=== PATIENT | female | born 1965 | race Caucasian/White ===

== ENCOUNTER → 2017-07-18 08:34 | Outpatient (CLI) | payer BC, SELFPAY ==
--- NOTE | 2017-07-18 08:38 | CT_ITS ---
STUDY: CT MAXILLOFACIAL SINUSES REASON FOR EXAM: Female, 51 years old. History of sinusitis. RADIATION DOSAGE (If Supplied By Facility): CTDIvol = ( 33.06 ) mGy, DLP = ( 784.26 ) mGycm TECHNIQUE: The patient was scanned in a multi detector CT scanner. High resolution axial imaging was performed without the administration of intravenous contrast material. Sagittal and coronal images were reconstructed. Individualized dose optimization techniques were used for this CT. COMPARISON: None. FINDINGS: FRONTAL SINUSES: Mild mucosal thickening of the left frontal sinus ETHMOIDAL SINUSES: Mild mucosal thickening of the ethmoid sinuses bilaterally. MAXILLARY SINUSES: Moderate mucosal thickening of the maxillary sinuses bilaterally. SPHENOIDAL SINUSES: Mild to moderate mucosal thickening of the sphenoid sinuses bilaterally. The ostiomeatal complex is bilaterally appear to be occluded. Normal bilateral middle turbinates. Normal bilateral inferior turbinates. Normal midline nasal septum. There is patency of the bilateral nasal airways. The visualized osseous structures are normal. The visualized bilateral orbital contents are normal. CT/Sinus/Facial Bone IMPRESSION: Pansinusitis as described above likely chronic. No air-fluid levels are seen. No demonstrated osseous changes. Electronically Signed: Trent Glass MD at 11:54 EDT Tel , Service support ,
== END ==
PROVIDERS: Family Provider Family Medicine; PCP Family Medicine; Visit Provider Otolaryngology
DX: J32.9 Chronic sinusitis, unspecified (principal); J33.0 Polyp of nasal cavity
CPT/HCPCS: 70486

== ENCOUNTER → 2017-10-07 11:24 | Outpatient (CLI) | payer BC, SELFPAY ==
[2017-10-13 11:53] LABS: HPV Reflexed? NOT INDICATED
== END ==
PROVIDERS: Visit Provider Obstetrics & Gynecology
DX: Z12.4 Encounter for screening for malignant neoplasm of cervix (principal)
CPT/HCPCS: 88175; G0145

== ENCOUNTER → 2018-01-27 09:57 | Outpatient (CLI) | payer BC, SELFPAY ==
[2018-01-27 12:40] LABS: Hematocrit 40.7 % (37-47); Hemoglobin 13.7 g/dl (12.0-15.0)
[2018-01-27 12:54] LABS: ALB/GLOB Ratio 1.1 RATIO (0.9-2.4); AST(SGOT) 18 U/L (15-37); Alanine Aminotransfer ALT/SGPT 29 U/L (13-56); Albumin, Serum 3.8 g/dL (3.2-5.0); Alkaline Phosphatase 70 U/L (45-117); Anion Gap 8 (5-15); BUN 14 mg/dL (7-18); BUN/Creat Ratio 18.7 RATIO (10-20); Calcium,Total 8.9 mg/dL (8.5-10.1); Chloride 107 mmol/L (98-107); Cholesterol 196 mg/dL (200); Creatinine, Serum 0.75 mg/dL (0.55-1.02); EST Glomerular Filtration Rate 86 mL/min (>60); Est Glom Filt Rate - Afr Amer 105 mL/min (>60); Globulin 3.4 g/dL (2.2-4.2); Glucose 98 mg/dL (74-106); High Density Lipoprotein 84 mg/dL; Potassium 4.3 mmol/L (3.5-5.1); Protein, Total 7.2 g/dL (6.4-8.2); Sodium Level 143 mmol/L (136-145); Thyroid Stim Hormone (TSH) 1.19 uIU/mL (0.358-3.74); Triglycerides 80 mg/dL; Very Low Density Lipoprotein 16 mg/dL (5-40)
== END ==
PROVIDERS: Family Provider Family Medicine; PCP Family Medicine; Visit Provider Family Medicine
DX: Z00.00 Encounter for general adult medical examination without abnormal findings (principal); E78.00 Pure hypercholesterolemia, unspecified; G47.30 Sleep apnea, unspecified
CPT/HCPCS: 36415; 80053; 80061; 84443; 85014; 85018

== ENCOUNTER → 2018-07-14 12:12 | Outpatient (CLI) | payer BC, SELFPAY ==
[2018-07-14 14:20] LABS: Absolute Lymphocyte Count 3.26 X10^3/ul (0.83-4.51); Absolute Neutrophil Count 3.4 X10^3/uL (2.0-7.7); Basophil# 0.01 X10^3/uL; Basophil% 0.1 % (0-1); Eosinophil# 0.08 X10^3/uL; Eosinophils% 1.1 % (0-5); Hematocrit 43.1 % (37-47); Hemoglobin 14.2 g/dl (12.0-15.0); Lymphocyte # 3.26 X10^3/ul (4.0); Lymphocyte % 44.3 % (19-41); Mean Corp Hgb Conc 32.9 g/gl (32-36); Mean Corpuscular Hgb 29.1 pg (27.0-32.0); Mean Corpuscular Volume 88.3 fL (81-99); Mean Platelet Vol. 9.5 fl (6.2-12.0); Monocyte# 0.56 X10^3/uL; Monocyte% 7.6 % (0-10); Neutrophil # 3.44 X10^3/uL (2.7-7.7); Neutrophil % 46.8 % (47-70); Platelet Count 274 K/mm3 (150-450); RBC Distribution Width CV 13.5 % (11.6-14.6); RBC Distribution Width SD 43.4 fl (35.1-43.9); Red Blood Count 4.88 M/mm3 (4.2-5.4); White Blood Count 7.4 K/mm3 (4.4-11.0)
[2018-07-14 14:21] LABS: POSITIVE COUNT NO; POSITIVE DIFFERENTIAL NO; POSITIVE MORPHOLOGY NO
[2018-07-14 14:44] LABS: ALB/GLOB Ratio 1.4 RATIO (0.9-2.4); AST(SGOT) 19 U/L (15-37); Alanine Aminotransfer ALT/SGPT 48 U/L (13-56); Albumin, Serum 3.8 g/dL (3.2-5.0); Alkaline Phosphatase 82 U/L (45-117); Anion Gap 7 (5-15); BUN 14 mg/dL (7-18); BUN/Creat Ratio 20.1 RATIO (10-20); Calcium,Total 8.4 mg/dL (8.5-10.1); Chloride 104 mmol/L (98-107); EST Glomerular Filtration Rate 94 mL/min (>60); Est Glom Filt Rate - Afr Amer 113 mL/min (>60); Globulin 2.8 g/dL (2.2-4.2); Glucose 88 mg/dL (74-106); Magnesium 2.2 mg/dL (1.6-2.6); Potassium 3.7 mmol/L (3.5-5.1); Protein, Total 6.6 g/dL (6.4-8.2); Sodium Level 141 mmol/L (136-145)
== END ==
PROVIDERS: Family Provider Family Medicine; PCP Family Medicine; Referring Provider Family Medicine; Visit Provider Family Medicine
DX: J18.1 Lobar pneumonia, unspecified organism (principal)
CPT/HCPCS: 36415; 80053; 83735; 85025

== ENCOUNTER → 2019-01-20 17:50 | Outpatient (CLI) | payer BC, SELFPAY ==
[2019-01-26 12:59] LABS: HPV APTIMA, High Risk Negative (Negative)
== END ==
PROVIDERS: Family Provider Family Medicine; PCP Family Medicine; Referring Provider Obstetrics & Gynecology; Visit Provider Obstetrics & Gynecology
DX: Z12.4 Encounter for screening for malignant neoplasm of cervix (principal)
CPT/HCPCS: 87624; 88175; G0145

== ENCOUNTER 2019-05-20 05:31 | Day surgery (SDC) | payer BC, SELFPAY ==
[2019-05-20] VITALS (9 sets, daily range): BP systolic 118–140; BP diastolic 63–106; PULSE 67–77; RESP 16–18; TEMP 36.3–36.6; O2SAT 95–100; BMI 36.3
--- NOTE | 2019-05-20 | COLBX_PTH ---
PATIENT: MONI ROBERTS LOC: EN U#:[id number] AGE/SX: 53/F ROOM: RE05/20/[address]: Dr. Gustavo Page MD : 1965 BED: DIS: 05/20/2019 SPEC #: [id number] RECD: 05/20/19 12:18 STATUS: CARLINE KEILA #: [id number] SHAMEKA: 05/20/19 00:[address]: Gustavo Page DEPT: SURGICAL PATHOLOGY RECD BY: Kt Pascal ENTERED: 05/20/19 12:18 SP TYPE: COLON BX OTHR DR: Dr. Eren Mena MD Tissues: Sigmoid colon biopsy Procedures: Surgery Specimen Level IV HEADER OPERATION: Colonoscopy - open access (MOD) PRE-OP DIAGNOSIS: Screening TISSUE SUBMITTED: Distal sigmoid polyp MICROSCOPIC DIAGNOSIS Distal sigmoid colon polyp, biopsy: Hyperplastic polyp. AM:jesusita 05/23/19 MICROSCOPIC DESCRIPTION Slides are reviewed. GROSS DESCRIPTION Received in fixative is one container labeled with the patient's name and designated distal sigmoid polyp. The specimen consists of one irregular fragment of light schultz soft tissue that measures 0.3 x 0.3 x 0.1 cm. The specimen is totally submitted in one cassette. / SJ:jesusita 05/20/19 TC:5 CPT: 16198
[2019-05-20] MEDS: Lactated Ringers 1,000 ML 100 ML IV (06:05)
--- NOTE | 2019-05-20 06:16 | PCM.HP.STD ---
Problem List (1) Screening for intestinal cancer Status: Acute History of Present Illness Date of Admission: 05/20/19 The patient is a 53 year old F who presents for screening colonoscopy today. She has never had a previous exam. 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 She was followed by gastroenterology at the [facility]. She states however that her most recent upper endoscopy that there was no evidence of Santizo's. She denies abdominal pain. No bright red blood per rectum or melena. She states that she was scheduled to have a previous colonoscopy but that an upper endoscopy was done at that setting and she had laryngeal spasm. The colonoscopy component of that procedure was canceled. She states that she has had multiple other previous upper endoscopies without any consequence. Past Medical History Allergies No Known Allergies Allergy (Verified 05/12/19 14:27) Home Medications: Ambulatory Orders Medication Instructions Recorded Cetirizine HCl [Zyrtec] 10 mg PO DAILY 05/12/19 Citalopram [Celexa] 20 mg PO DAILY 05/12/19 Multivitamin [Daily Value] 1 ea PO DAILY 05/12/19 RX: Omeprazole 40 mg PO DAILY 05/12/19 Simvastatin [Zocor] 40 mg PO QHS 05/12/19 Smoking Status: Former smoker Tobacco Use: Non-smoker Review of Systems Constitutional: Denies: Anorexia HEENT: Denies: Difficulty Swallowing Cardiovascular: Denies: Chest Pain Respiratory: Denies: Cough Gastrointestinal: Denies: Abdominal Pain, Melena Endocrine: Denies: Change in Body Habitus VTE Information - Inpt Only VTE Present on Admission: No Patient Problems: Active and Suspected Problems Screening for intestinal cancer (Acute) - Physical Exam Vitals/I&O's: Vital Signs Temp Pulse Resp BP Pulse Ox 97.5 F L 67 18 138/106 H 99 05/20/19 05:53 05/20/19 05:53 05/20/19 05:53 05/20/19 05:53 05/20/19 05:53 Oxygen Delivery Method Room Air Weight: 205 lb 7.533 oz Body Mass Index (BMI) 36.3 General: Alert, Oriented x3, Cooperative, No apparent distress HEENT: Atraumatic Oral: Moist Mucosa Neck: Supple Lungs: Clear to auscultation Cardiovascular: Regular rate, Regular Rhythm Abdomen: Bowel Sounds Present, Non Tender Neurological: - - Normal cognition Psych/Mental Status: Normal Affect Current Medications Lactated Ringer's () 1,000 mls @ 100 mls/hr IV .Q10H MARCELA Last Admin: 05/20/19 06:05 Dose: 100 mls/hr Documented by: Assessment/Plan All Active Problems Screening for intestinal cancer (Acute) I recommended the patient a screening colonoscopy with possible biopsy or polypectomy is indicated. She is aware of the technique, benefit, risks, alternatives. She has had an opportunity to ask and have questions answered. She presents via open access today. We will proceed as noted. Gustavo Page M.D., F.A.C.S.
--- NOTE | 2019-05-20 07:02 | OP.CCLET_ITS ---
05/20/2019 Eren Mena [address] [place] [address] Re : Colonoscopy procedure for Margaret David Dear Dr. Mena This procedure was performed on Monday, May 20, 2019. My impressions and recommendations are as follows: Impressions : - One 6 mm polyp in the distal sigmoid colon, removed with a hot snare. Resected and retrieved. Clip was placed. - Diverticulosis in the sigmoid colon. - The examination was otherwise normal. Recommendations : - Discharge patient to home. - Resume previous diet. - Continue present medications. - Repeat colonoscopy in 5 years for surveillance. - Telephone my office for pathology results in 1 week. My findings are described in the full procedure note, which is enclosed. If I can be of further assistance, please feel free to contact me at Doctor phone number(s): Work: . Sincerely, Gustavo Page MD 05/20/2019 7:02:01 AM This report has been signed electronically.
--- NOTE | 2019-05-20 07:02 | OP.COLON_ITS ---
Patient Name: Margaret Hernandez Procedure Date: 05/20/2019 5:54 AM Date of : 1965 Age: 53 Procedure: Colonoscopy Indications: Screening for colorectal malignant neoplasm Providers: Gustavo Page MD Referring MD: Eren Mena Medicines: Midazolam 4 mg IV, Meperidine 100 mg IV, Diphenhydramine 12.5 mg IV Patient Profile: Last Colonoscopy: none. The patient's first colonoscopy is today. Complications: No immediate complications. Procedure: Pre-Anesthesia Assessment: - Prior to the procedure, a History and Physical was performed, and patient medications and allergies were reviewed. The patient's tolerance of previous anesthesia was also reviewed. The risks and benefits of the procedure and the sedation options and risks were discussed with the patient. All questions were answered, and informed consent was obtained. Prior Anticoagulants: The patient has taken no previous anticoagulant or antiplatelet agents. ASA Grade Assessment: II - A patient with mild systemic disease. After reviewing the risks and benefits, the patient was deemed in satisfactory condition to undergo the procedure. After I obtained informed consent, the scope was passed under direct vision. Throughout the procedure, the patient's blood pressure, pulse, and oxygen saturations were monitored continuously. The colonoscope was introduced through the anus and advanced to the cecum, identified by appendiceal orifice and ileocecal valve. The colonoscopy was performed with moderate difficulty due to a tortuous colon. Successful completion of the procedure was aided by using manual pressure. The patient tolerated the procedure well. The quality of the bowel preparation was good. The ileocecal valve and the appendiceal orifice were photographed. Moderate Sedation: Moderate (conscious) sedation was personally administered by the endoscopist. The following parameters were monitored: oxygen saturation, heart rate, blood pressure, and response to care. Total physician intraservice time was 15 minutes. Scope In: 6:35:07 AM Scope Withdrawal Time 0 hours 8 minutes 27 seconds Scope Out: 6:53:07 AM Total Procedure Duration Time 0 hours 18 minutes 0 seconds Findings: The perianal and digital rectal examinations were normal. A 6 mm polyp was found in the distal sigmoid colon. The polyp was sessile. The polyp was removed with a hot snare. Resection and retrieval were complete. To prevent bleeding post-intervention, one hemostatic clip was successfully placed. There was no bleeding at the end of the procedure. Scattered diverticula were found in the sigmoid colon. The exam was otherwise without abnormality. Impression: - One 6 mm polyp in the distal sigmoid colon, removed with a hot snare. Resected and retrieved. Clip was placed. - Diverticulosis in the sigmoid colon. - The examination was otherwise normal. Recommendation: - Discharge patient to home. - Resume previous diet. - Continue present medications. - Repeat colonoscopy in 5 years for surveillance. - Telephone my office for pathology results in 1 week. Procedure Code(s): --- Professional --- 38142, Colonoscopy, flexible; with removal of tumor(s), polyp(s), or other lesion(s) by snare technique 94549, 59, Moderate sedation services provided by the same physician or other qualified health reservoir caretaker performing the diagnostic or therapeutic service that the sedation supports, requiring the presence of an independent trained observer to assist in the monitoring of the patient's level of consciousness and physiological status; initial 15 minutes of intraservice time, patient age 5 years or older Diagnosis Code(s): --- Professional --- Z12.11, Encounter for screening for malignant neoplasm of colon D12.5, Benign neoplasm of sigmoid colon K57.30, Diverticulosis of large intestine without perforation or abscess without bleeding CPT copyright 2017 [employer]. All rights reserved. The codes documented in this report are preliminary and upon dumpling machine operator review may be revised to meet current compliance requirements. Gustavo Page MD 05/20/2019 7:02:01 AM This report has been signed electronically. Number of Addenda: 0 Note Initiated On: 05/20/2019 5:54 AM
== END 2019-05-20 07:35 | disposition home or self-care (01) ==
LOC: EN 05:32 → AC 05:33
PROVIDERS: Family Provider Family Medicine; PCP Family Medicine; Referring Provider Family Medicine; Visit Provider Surgery
PROC: 0DJD8ZZ Inspection of Lower Intestinal Tract, Via Natural or Artificial Opening Endoscopic (ICD-10-PCS; CPT 45378; principal; 2019-05-20 06:25)
DX: Z12.11 Encounter for screening for malignant neoplasm of colon (principal); D12.5 Benign neoplasm of sigmoid colon; K57.30 Diverticulosis of large intestine without perforation or abscess without bleeding; J38.5 Laryngeal spasm; Z79.899 Other long term (current) drug therapy; Z87.891 Personal history of nicotine dependence
CPT/HCPCS: 45385; 88305; 99152; 99153; J7120

== ENCOUNTER → 2020-01-06 15:54 | Outpatient (CLI) | payer BC, SELFPAY ==
[2019-05-20 05:53] VITALS: BMI 36.3
[2020-01-06 17:51] LABS: Absolute Lymphocyte Count 2.88 X10^3/uL (0.83-4.51); Absolute Neutrophil Count 5.2 X10^3/uL (2.0-7.7); Basophil# 0.06 X10^3/uL; Basophil% 0.7 % (0-1); Eosinophil# 0.39 X10^3/uL; Eosinophils% 4.3 % (0-5); Hematocrit 41.3 % (37-47); Hemoglobin 13.7 g/dL (12.0-15.0); Lymphocyte # 2.88 X10^3/ul (4.0); Lymphocyte % 31.5 % (19-41); Mean Corp Hgb Conc 33.2 g/dL (32-36); Mean Corpuscular Hgb 30.2 pg (27.0-32.0); Mean Corpuscular Volume 91.2 fL (81-99); Mean Platelet Vol. 10.1 fl (6.2-12.0); Monocyte# 0.59 X10^3/uL; Monocyte% 6.4 % (0-10); NRBC Flagged by Analyzer 0 % (0-5); Neutrophil # 5.21 X10^3/uL (2.7-7.7); Neutrophil % 56.9 % (47-70); Platelet Count 327 K/mm3 (150-450); RBC Distribution Width CV 13.2 % (11.6-14.6); RBC Distribution Width SD 43.8 fl (35.1-43.9); Red Blood Count 4.53 M/mm3 (4.2-5.4); White Blood Count 9.2 K/mm3 (4.4-11.0)
[2020-01-06 18:03] LABS: AST(SGOT) 15 U/L (15-37); Alanine Aminotransfer ALT/SGPT 27 U/L (13-56); Albumin, Serum 3.7 g/dL (3.2-5.0); Alkaline Phosphatase 76 U/L (45-117); Anion Gap 5 (5-15); BUN 8 mg/dL (7-18); BUN/Creat Ratio 9.4 RATIO (10-20); Calcium,Total 9.1 mg/dL (8.5-10.1); Chloride 109 mmol/L (98-107); Creatinine, Serum 0.85 mg/dL (0.55-1.02); EST Glomerular Filtration Rate 74 mL/min (>60); Est Glom Filt Rate - Afr Amer 90 mL/min (>60); Globulin 3.6 g/dL (2.2-4.2); Glucose 101 mg/dL (74-106); Lipase 185 U/L (73-393); Potassium 3.8 mmol/L (3.5-5.1); Protein, Total 7.3 g/dL (6.4-8.2); Sodium Level 143 mmol/L (136-145)
[2020-01-09 15:24] LABS: CRP, High Sensitivity Cardiac 3.51 mg/L
== END ==
PROVIDERS: PCP Family Medicine; Referring Provider Family Medicine; Visit Provider Family Medicine
DX: R10.11 Right upper quadrant pain (principal)
CPT/HCPCS: 36415; 80053; 83690; 85025; 86141

== ENCOUNTER → 2020-01-07 11:30 | Outpatient (CLI) | payer BC, SELFPAY ==
[2019-05-20 05:53] VITALS: BMI 36.3
--- NOTE | 2020-01-07 11:33 | US_ITS ---
STUDY: ABDOMINAL ULTRASOUND REASON FOR EXAM: Female, 54 years old. RUQ PAIN TECHNIQUE: Transabdominal ultrasound was performed with real-time and static casas scale imaging. TECHNICAL QUALITY: Adequate. COMPARISON: None. FINDINGS: Liver: The liver measures 17.2 cm. There is normal echogenicity of the liver. The bile ducts are within normal limits. There is hepatic color flow. The direction of portal flow is hepatopetal. There is no demonstrated mass lesion. Portal vein measurement: Gallbladder: Normal distended gallbladder. The gallbladder wall measures 1 mm. There is a negative sonographic Aleman''s sign. There is no pericholecystic fluid. There are no gallstones. Common Bile Duct (C.B.D.): The common bile duct measures 4 mm. Pancreas: Pancreatic head and body are visualized however the tail is incompletely seen. There is normal echogenicity of the pancreas. There is no demonstrated pancreatic mass or cyst. Spleen: Normal size of the spleen. The spleen measures 10.8 cm. Right Kidney: Normal size of the right kidney. The right kidney measures 11.7 x 4.5 x 4.2 cm. Normal renal cortex. The right cortex measures 1.4 cm. There is a hypoechoic region within the right renal cortex measuring 9 x 7 x 7 mm. There is no right hydronephrosis. Left Kidney: Normal size of the left kidney. The left kidney measures 11.5 x 5.3 x 4.4 cm. Normal renal cortex. The left cortex measures 1.5 cm. There is no demonstrated renal mass or cyst. There is no left hydronephrosis. Aorta: Proximal aorta measures 2.0 cm, mid 1.7 cm and distal 1.5 cm. I.V.C.: The IVC is patent. There is no ascites. US/Abdomen Complete IMPRESSION: No evidence of acute abdominal process by ultrasound. No evidence of cholecystitis. Electronically Signed: Bill Gonzalez DO at 12:24 EDT , Service support ,
== END ==
PROVIDERS: PCP Family Medicine; Referring Provider Family Medicine; Visit Provider Family Medicine
DX: R10.11 Right upper quadrant pain (principal)
CPT/HCPCS: 76700

== ENCOUNTER → 2020-11-05 09:20 | Outpatient (CLI) | payer BC, SELFPAY ==
[2019-05-20 05:53] VITALS: BMI 36.3
--- NOTE | 2020-11-05 09:23 | BI_ITS ---
MAMMOGRAPHY - BILATERAL DIAGNOSTIC REASON FOR EXAM: Female, 54 years old. Six-month history of right lateral breast pain. PERTINENT HISTORY: Non-contributory. TECHNIQUE: Digital bilateral breast carla (3D mammographic acquisition) in the CC and MLO projections. 2-D mediolateral oblique (MLO) and craniocaudad (CC) views of both breasts were obtained. CAD: Full Field Digital Mammography with Computer Added Detection was performed. COMPARISON: Comparison is made with prior outside examination dated 12/15/2018. FINDINGS: Breast Composition: There are scattered areas of fibroglandular density. There are no dominant masses or suspicious calcifications. There is a 9 mm well-defined nodule in the anterior slightly upper lateral aspect of the left breast. Correlation with ultrasound is recommended. Stable small benign-appearing bilateral axillary lymph nodes. No other significant abnormalities are identified. BI/DIAG MAMM W/CAD, BILAT IMPRESSION: Slight increase in size of the previously seen nodule in the upper-outer quadrant of the left breast as described. Correlation with ultrasound is recommended. With the patient''s history of right lateral breast pain, correlation with targeted ultrasound of the right breast is recommended as well. ASSESSMENT CATEGORY: BIRADS Category 0: Incomplete. Need additional imaging evaluation. A letter regarding these results will be sent to the patient by the facility within 30 days. Approximately 10% of breast cancers are not detected by mammography. A normal mammogram should not delay biopsy of a clinically suspicious abnormality. Electronically Signed: Jaime Roach MD at 10:32 EDT , Service support ,
--- NOTE | 2020-11-05 10:02 | US_ITS ---
STUDY: ULTRASOUND BREAST - LEFT REASON FOR EXAM: Female, 54 years old. Left breast nodule. TECHNIQUE: Axial and longitudinal images of the LEFT breast were performed with a high resolution ultrasound transducer. # OF IMAGES: 81 COMPARISON: Comparison is made with prior mammogram done earlier today. FINDINGS: LEFT Breast: There is an 8 mm x 7 mm x 7 mm cyst with low-level echoes within. This is just deep to the skin surface. This may represent a possible sebaceous cyst. Clinical correlation recommended. IMPRESSION: The mammographic abnormality corresponds to an 8 mm x 7 mm x 7 mm cystic density with the low-level echoes within it at the 3 o''clock position breast at 3 cm from the nipple. This is superficial. A sebaceous cyst should be ruled out. ASSESSMENT CATEGORY: BIRADS Category 2: Benign. A letter regarding these results will be sent to the patient by the facility within 30 days. Electronically Signed: Jaime Roach MD at 11:10 EDT , Service support , STUDY: ULTRASOUND BREAST - RIGHT REASON FOR EXAM: Female, 54 years old. Pain in the right breast. TECHNIQUE: Axial and longitudinal images of the RIGHT breast were performed with a high resolution ultrasound transducer. # OF IMAGES: 81 COMPARISON: Comparison is made with prior mammogram done earlier today. FINDINGS: RIGHT Breast: The upper outer quadrant of the right breast was examined by ultrasound. There is a 1.2 cm x 1.4 cm x 0.7 cm cyst. Low-level echoes are seen along its dependent portion. This is just deep to the skin surface. A sebaceous cyst should be ruled out. US/Breast Limited Unilateral IMPRESSION: 1.2 cm x 1.4 cm x 0.7 cm cyst with low-level echoes within it just deep to the skin surface at the 10 o''clock position of the breast is 6 cm from nipple. This may represent a sebaceous cyst. Clinical correlation is recommended. ASSESSMENT CATEGORY: BIRADS Category 2: Benign. A letter regarding these results will be sent to the patient by the facility within 30 days. Electronically Signed: Jaime Roach MD at 11:11 EDT , Service support ,
== END ==
PROVIDERS: PCP Family Medicine; Referring Provider Obstetrics & Gynecology; Visit Provider Obstetrics & Gynecology
DX: N63.31 Unspecified lump in axillary tail of the right breast (principal); N64.4 Mastodynia
CPT/HCPCS: 76642; 77062; 77066; G0279

== ENCOUNTER 2021-04-23 10:23 | Outpatient (CLI) | payer MEDICAID, SELFPAY ==
[2021-04-23 12:37] LABS: Absolute Lymphocyte Count 2.06 X10^3/uL (0.83-4.51); Basophil# 0.03 X10^3/uL; Basophil% 0.5 % (0-1); Eosinophil# 0.42 X10^3/uL; Eosinophils% 6.9 % (0-5); Hematocrit 40.7 % (37-47); Hemoglobin 13.2 g/dL (12.0-15.0); Lymphocyte # 2.06 X10^3/ul (0.83-4.51); Lymphocyte % 33.8 % (19-41); Mean Corp Hgb Conc 32.4 g/dL (32-36); Mean Corpuscular Hgb 28.6 pg (27.0-32.0); Mean Corpuscular Volume 88.3 fL (81-99); Mean Platelet Vol. 9.7 fl (6.2-12.0); Monocyte# 0.59 X10^3/uL; Monocyte% 9.7 % (0-10); NRBC Flagged by Analyzer 0 % (0-5); Neutrophil # 2.98 X10^3/uL (2.7-7.7); Neutrophil % 48.8 % (47-70); Platelet Count 291 K/mm3 (150-450); RBC Distribution Width CV 13.3 % (11.6-14.6); Red Blood Count 4.61 M/mm3 (4.2-5.4); White Blood Count 6.1 K/mm3 (4.4-11.0)
[2021-04-23 12:47] LABS: Vitamin D,25 Hydroxy 18.1 ng/mL
[2021-04-23 12:56] LABS: AST(SGOT) 16 U/L (15-37); Alanine Aminotransfer ALT/SGPT 34 U/L (13-56); Albumin, Serum 3.7 g/dL (3.2-5.0); Alkaline Phosphatase 76 U/L (45-117); Anion Gap 11 (5-15); BUN 17 mg/dL (7-18); BUN/Creat Ratio 21.4 RATIO (10-20); Calcium,Total 9.2 mg/dL (8.5-10.1); Chloride 105 mmol/L (98-107); Cholesterol 197 mg/dL (200); Creatinine, Serum 0.79 mg/dL (0.55-1.02); EST Glomerular Filtration Rate 80 mL/min (>60); Est Glom Filt Rate - Afr Amer 97 mL/min (>60); Globulin 3.6 g/dL (2.2-4.2); Glucose 107 mg/dL (74-106); High Density Lipoprotein 85 mg/dL; Potassium 3.6 mmol/L (3.5-5.1); Protein, Total 7.3 g/dL (6.4-8.2); Sodium Level 143 mmol/L (136-145); Thyroid Stim Hormone (TSH) 2.24 uIU/mL (0.358-3.74); Triglycerides 116 mg/dL; Very Low Density Lipoprotein 23 mg/dL (5-40)
== END 2021-04-23 23:59 | disposition short-term general hospital (02) ==
LOC: BIMLAB 10:25
PROVIDERS: PCP Internal Medicine; Referring Provider Internal Medicine; Visit Provider Internal Medicine
DX: E78.5 Hyperlipidemia, unspecified (principal); K21.9 Gastro-esophageal reflux disease without esophagitis; K22.70 Barrett's esophagus without dysplasia; F41.9 Anxiety disorder, unspecified
CPT/HCPCS: 36415; 80053; 80061; 82306; 84443; 85025

== ENCOUNTER → 2022-09-01 | Outpatient (CLI) | payer MEDICAID, SELFPAY ==
--- NOTE | 2022-09-01 09:35 | BI_ITS ---
MAMMOGRAPHY - BILATERAL SCREENING REASON FOR EXAM: Female, 56 years old. Routine annual screening examination. PERTINENT HISTORY: Non-contributory. TECHNIQUE: Digital bilateral breast mari (3D mammographic acquisition) in the CC and MLO projections. 2-D mediolateral oblique (MLO) and craniocaudad (CC) views of both breasts were obtained. CAD: Full Field Digital Mammography with Computer Added Detection was performed. COMPARISON: Comparison is made with prior study November 05, 2020. FINDINGS: Breast Composition: There are scattered areas of fibroglandular density. There is a 1 cm x 1.3 cm well-defined nodule in the anterior upper lateral aspect of the left breast. Ultrasound is recommended. Stable benign-appearing bilateral axillary lymph nodes. No other significant abnormalities are identified. BI/SCRN MAMM (CAD)W/MARI BILAT IMPRESSION: 1 cm x 1.3 cm well-defined nodule in the anterior plantar aspect of the left breast. Correlation with ultrasound is recommended. ASSESSMENT CATEGORY: BIRADS Category 0: Incomplete. Need additional imaging evaluation. A letter regarding these results will be sent to the patient by the facility within 30 days. Approximately 10% of breast cancers are not detected by mammography. A normal mammogram should not delay biopsy of a clinically suspicious abnormality. [id number] Electronically Signed: Jaime Roach MD at 11:25 EDT ,
[2022-09-01 10:47] LABS: Absolute Lymphocyte Count 2.31 X10^3/uL (0.83-4.51); Basophil# 0.06 X10^3/uL; Basophil% 0.9 % (0-1); Eosinophil# 0.47 X10^3/uL; Eosinophils% 7.3 % (0-5); Hemoglobin 13.5 g/dL (12.0-15.0); Lymphocyte # 2.31 X10^3/ul (0.83-4.51); Lymphocyte % 35.8 % (19-41); Mean Corp Hgb Conc 32.9 g/dL (32-36); Mean Corpuscular Hgb 29.5 pg (27.0-32.0); Mean Corpuscular Volume 89.7 fL (81-99); Mean Platelet Vol. 9.6 fl (6.2-12.0); Monocyte# 0.57 X10^3/uL; Monocyte% 8.8 % (0-10); NRBC Flagged by Analyzer 0 % (0-5); Neutrophil # 3.03 X10^3/uL (2.7-7.7); Neutrophil % 46.9 % (47-70); Platelet Count 310 K/mm3 (150-450); RBC Distribution Width CV 13.6 % (11.6-14.6); RBC Distribution Width SD 44.6 fl (35.1-43.9); Red Blood Count 4.57 M/mm3 (4.2-5.4); White Blood Count 6.5 K/mm3 (4.4-11.0)
[2022-09-01 11:10] LABS: ALB/GLOB Ratio 1.2 RATIO (0.9-2.4); AST(SGOT) 24 U/L (15-37); Alanine Aminotransfer ALT/SGPT 36 U/L (13-56); Albumin, Serum 3.9 g/dL (3.2-5.0); Alkaline Phosphatase 74 U/L (45-117); Anion Gap 7 (5-15); BUN 15 mg/dL (7-18); Calcium,Total 9.2 mg/dL (8.5-10.1); Chloride 108 mmol/L (98-107); Cholesterol 209 mg/dL (200); Creatinine, Serum 0.79 mg/dL (0.55-1.02); EST Glomerular Filtration Rate 80 mL/min (>60); Est Glom Filt Rate - Afr Amer 97 mL/min (>60); Globulin 3.3 g/dL (2.2-4.2); Glucose 98 mg/dL (74-106); High Density Lipoprotein 101 mg/dL; Potassium 3.7 mmol/L (3.5-5.1); Protein, Total 7.2 g/dL (6.4-8.2); Sodium Level 144 mmol/L (136-145); Triglycerides 104 mg/dL; Very Low Density Lipoprotein 21 mg/dL (5-40)
[2022-09-01 11:15] LABS: Hemoglobin A1c 5.1 % (3.8-5.6)
[2022-09-01 11:19] LABS: Vitamin D,25 Hydroxy 34.8 ng/mL
== END | disposition home or self-care (01) ==
PROVIDERS: PCP Internal Medicine; Referring Provider Internal Medicine; Visit Provider Internal Medicine
DX: Z12.31 Encounter for screening mammogram for malignant neoplasm of breast (principal); E66.9 Obesity, unspecified; R73.9 Hyperglycemia, unspecified; E78.5 Hyperlipidemia, unspecified; E55.9 Vitamin D deficiency, unspecified
CPT/HCPCS: 36415; 77063; 77067; 80053; 80061; 82306; 83036; 85025

== ENCOUNTER → 2022-09-16 | Outpatient (CLI) | payer MEDICAID, SELFPAY ==
--- NOTE | 2022-09-16 07:51 | US_ITS ---
STUDY: ULTRASOUND BREAST - LEFT REASON FOR EXAM: Female, 56 years old. Abnormal screening mammogram. TECHNIQUE: Axial and longitudinal images of the LEFT breast were performed with a high resolution ultrasound transducer. # OF IMAGES: 59 COMPARISON: Comparison is made with prior mammogram dated September 01, 2022 and prior sonogram of the left breast dated November 05, 2020. FINDINGS: LEFT Breast: The mammographic abnormality corresponds to a 9 mm x 4 mm x 3 mm cyst at the 12:00 position of the breast at 6 cm from nipple. There are 2 adjacent similar appearing cysts at the 2:00 position the breast measuring 6 mm x 3 mm x 4 mm. US/Breast Limited Unilateral IMPRESSION: Small cysts are seen in the upper outer quadrant of the left breast. ASSESSMENT CATEGORY: BIRADS Category 2: Benign. A letter regarding these results will be sent to the patient by the facility within 30 days. Electronically Signed: Jaime Roach MD at 13:18 EDT ,
== END | disposition home or self-care (01) ==
LOC: OPUS 07:50
PROVIDERS: PCP Internal Medicine; Referring Provider Internal Medicine; Visit Provider Internal Medicine
DX: R92.8 Other abnormal and inconclusive findings on diagnostic imaging of breast (principal); N63.21 Unspecified lump in the left breast, upper outer quadrant
CPT/HCPCS: 76642

== ENCOUNTER 2023-03-03 08:58 | Day surgery (SDC) | payer MEDICAID, SELFPAY ==
--- NOTE | 2023-02-24 08:18 | EKG12_ITS ---
Test Reason : PRE OP Blood Pressure : / mmHG Vent. Rate : 062 BPM Atrial Rate : 062 BPM P-R Int : 160 ms QRS Dur : 086 ms QT Int : 428 ms P-R-T Axes : 056 025 061 degrees QTc Int : 434 ms Normal sinus rhythm Normal ECG Confirmed by SARAH RETANA, MAYNOR ([id number]), state editor SADIE DE LA O ([id number]) on 03/02/2023 7:30:52 AM Referred By: Víctor Milian Confirmed By:SANIYA SMITH MD
[2023-02-24 09:00] LABS: Hematocrit 42.5 % (37-47); Mean Corp Hgb Conc 32.9 g/dL (32-36); Mean Corpuscular Hgb 29.9 pg (27.0-32.0); Mean Corpuscular Volume 90.6 fL (81-99); Mean Platelet Vol. 9.6 fl (6.2-12.0); Platelet Count 291 K/mm3 (150-450); RBC Distribution Width CV 13.9 % (11.6-14.6); RBC Distribution Width SD 45.3 fl (35.1-43.9); Red Blood Count 4.69 M/mm3 (4.2-5.4); White Blood Count 5.7 K/mm3 (4.4-11.0)
[2023-02-24 09:34] LABS: Anion Gap 3 (5-15); BUN 11 mg/dL (7-18); BUN/Creat Ratio 13.9 RATIO (10-20); Calcium,Total 9.3 mg/dL (8.5-10.1); Chloride 111 mmol/L (98-107); Creatinine, Serum 0.79 mg/dL (0.55-1.02); EST Glomerular Filtration Rate 80 mL/min (>60); Est Glom Filt Rate - Afr Amer 97 mL/min (>60); Glucose 118 mg/dL (74-106); Sodium Level 142 mmol/L (136-145)
[2023-03-03] VITALS (9 sets, daily range): BP systolic 104–138; BP diastolic 52–76; PULSE 63–73; RESP 16–17; TEMP 36.2–36.8; O2SAT 89–95; BMI 35.7
[2023-03-03] MEDS: Lactated Ringers 1,000 ML 15 ML IV (09:44)
--- NOTE | 2023-03-03 11:02 | DCINST_ITS ---
Discharge Instructions Diet Discharge Diet: No restrictions Activity Discharge Activity: Return to Normal Activity Dressing / Incision Call your doctor if your incision/area has: Sudden Increased Bleeding Additional Dressing/Incision Instructions:: saline to nose 5 times daily. mupirocin ointment to nostrils three times daily. sleep with head of bed elevated. Follow Up Care Please Follow Up With: Berlin Milian MD When: 1 week Test Results: Test results from this visit will be discussed in further detail at your follow- up appointment, if applicable. Discharge Plan Admission Attending Provider: Berlin Milian Primary Care Provider: Camille Cox Discharge Orders/Prescriptions Prescriptions: No Action lorazepam 0.5 mg tablet 0.5 mg PO DAILY PRN (Reason: anxiety) cetirizine 10 MG tablet 10 mg PO DAILY citalopram 10 mg tablet 10 mg PO DAILY Qty: 90 3RF omeprazole 40 mg capsule,delayed release(DR/EC) 40 mg PO DAILY Qty: 90 3RF simvastatin 40 mg tablet 40 mg PO QHS Qty: 90 3RF Referrals / Follow Up: Camille Cox MD [Primary Care Provider] - Disposition Disposition (needs filled in before D/C Order can be placed): Home, Self Care
--- NOTE | 2023-03-03 11:05 | OP.PCM_ITS ---
Problems Associated Problem List Diagnoses (1) Chronic pansinusitis: (2) Polyp of nasal sinus: (3) Deviated nasal septum: (4) Nasal turbinate hypertrophy: (5) Nasal congestion: Report of Operation Date of Procedure: 03/03/23 Pre-Operative Diagnosis: 1. nasal congestion 2. nasal septal deviation 3. Nasal polyposis 4. inferior turbinate hypertrophy, right and left 5. chronic pansinusitis Post-Operative Diagnosis: 1. nasal congestion 2. nasal septal deviation 3. Nasal polyposis 4. inferior turbinate hypertrophy, right and left 5. chronic pansinusitis Surgery/Procedure Performed:: 1. endoscopic maxillary antrostomy with removal of contents, right and left 2. endoscopic total ethmoidecotmy, right and left 3. endoscopic sphenoidotomy with removal of contents, right and left 4. endoscopic frontal sinus exploration removal of contents, right and left 5. septoplasty 6. submucous and bony resection inferior turbinates, right and left 7. extensive removal of polyps, right and left sinonasal cavity 8. image guidance CT navigation Surgeon: Berlin Milian Type of Anesthesia: General Description of Procedure: On the day of the procedure, after appropriate informed consent was obtained, the patient was brought to the operating room and placed in a supine position on the operating room table. The patient was placed under general endotracheal anesthesia by the anesthesiologist. The endotracheal tube was secured.? image guidance navigation was set up on the face and accuracy was confirmed.? the nose was injected with lidocaine/epinephrine and decongested with oxymetazoline- soaked pledgets.? a marginal incision was made with a #15 blade on the left side.? a submucoperichondrial plane was developed on the patient's left side with a yanci elevator.? this was taken posteriorly to the bony/cartilaginous junction and inferiorly to the maxillary crest.? after an L-strut was marked, a large leftward defection and bony spur were removed with a D-knife and amita stanford.? the head of the right and left turbinates were injected with lidocaine/epinephrine.? the head of the left inferior turbinate was incised with a 15 blade, dissected submucosally with a yanci elevator, reduced using suction electrocautery and outfractured using a boies elevator. bony reduction was performed with a thru cut the head of the right inferior turbinate was incised with a 15 blade, dissected submucosally with a yanci elevator, reduced using suction electrocautery and outfractured using a boies elevator.? bony reduction was performed with a thru cut the zero degree endoscope was used to evaluate the nasal cavity.? the superior attachment of the right and left middle turbinate and uncinate processes were injected with lidocaine/epinephrine.? the left nasal cavity was evaluated.? the middle turbinate was medialized.? extensive polypoid tissue was removed from the middle meatus, frontal recess and sphenoethmoidal recess. a maxillary antrostomy and uncinectomy were performed with a yanci elevator and a rufina cut.? the antrostomy was widened with a back-biter.? purulent material and polyp tissue was evacuated.? the ethmoid bulla was entered bluntly with the suction.? a total ethmoidectomy was performed with a curette and an upgoing blakesley.? this was taken superiorly to the skull base and laterally to the lamina.?additional ethmoid polyps were removed. a stankewicz maneuver was performed and no laminar defect was noted.? the natural sphenoid os was widened with the microdebrider and contents were evacuated.? additional polyps were removed from the sphenoethmoidal recess.? the frontal recess was explored and contents were evacuated.? hemostasis was achieved with suction cautery; willie was placed. the right nasal cavity was evaluated.? the middle turbinate was medialized.? extensive polypoid tissue was removed from the middle meatus, fr ontal recess and sphenoethmoidal recess. a maxillary antrostomy and uncinectomy were performed with a yanci elevator and a rufina cut.? the antrostomy was widened with a back-biter.? polypoid material was evacuated.? the ethmoid bulla was entered bluntly with the suction.? a total ethmoidectomy was performed with a curette and an upgoing blakesley.? this was taken superiorly to the skull base and laterally to the lamina.? ethmoid polyps were removed. a stankewicz maneuver was performed and no laminar defect was noted.? the natural sphenoid os was widened with the microdebrider and contents were evacuated.? polyp tissue was removed from the sphenoethmoidal recess.? the frontal recess was explored and contents were evacuated.? hemostasis was achieved with suction cautery; willie was placed. norton splints were sutured into place.? a nasogastric tube was inserted orally and contents were evacuated.? the table was rotated 90 degrees toward the anesthesiologist and? was subsequently extubated uneventfully.? she was transferred to the PACU in stable condition.
--- NOTE | 2023-03-03 11:15 | NASAL_PTH ---
PATIENT: MONI ROBERTS LOC: [facility] [place] U#:[id number] AGE/SX: 57/F ROOM: RE03/03/[address]: Dr. Berlin Milian MD : 1965 BED: DIS: 03/03/2023 SPEC #: [id number] RECD: 03/03/23 13:50 STATUS: CARLINE REYung #: [id number] SHAMEKA: 03/03/23 11:[address]: Berlin Milian DEPT: SURGICAL PATHOLOGY RECD BY: Kristin Adams ENTERED: 03/03/23 14:26 SP TYPE: NASAL SPEC OTHR DR: Dr. Camille Cox MD Tissues: A - Ethmoid sinus, NOS B - Ethmoid sinus, NOS C - Nasal septum, NOS Procedures: Decalcification bone/plaque Surgery Specimen Level III Surgery Specimen Level IV HEADER OPERATION: Functional endoscopic sinus surgery, septoplasty PRE-OP DIAGNOSIS: Chronic pansinusitis, polyp of nasal sinus, deviated nasal septum TISSUE SUBMITTED: A - Left sinus content, B - Right sinus content, C - Nasal septum MICROSCOPIC DIAGNOSIS A. Left sinus contents, curettings: Chronic sinusitis. Fragments of bone with no pathologic change. B. Right sinus contents, curettings: Chronic sinusitis. Fragments of bone with no pathologic change. C. Nasal septum, septoplasty: Fragments of hyaline cartilage and bone (clinically deviated septum). AM:jesusita 03/06/2023 MICROSCOPIC DESCRIPTION Slides are reviewed. GROSS DESCRIPTION A - Received in fixative is one container labeled with the patient's name and designated left sinus contents. The specimen consists of multiple irregular and gritty fragments of light to dark schultz soft tissue that in aggregate measure 2.5 x 2.0 x 0.2 cm. The specimen is totally submitted in one cassette after decalcification. B - Received in fixative is one container labeled with the patient's name and designated right sinus contents. The specimen consists of multiple irregular and gritty fragments of light to dark schultz soft tissue that in aggregate measure 2.0 x 1.5 x 0.1 cm. The specimen is totally submitted in one cassette after decalcification. C - Received in fixative is one container labeled with the patient's name and designated nasal septum. The specimen consists of a single irregular fragment of schultz, cartilaginous tissue measuring 2.5 x 1.5 x 0.1 cm. The specimen is totally submitted in one cassette after decalcification. / AM:jesusita 03/03/2023 TC:3 CPT: 68795 x3, [id number] x3
[2023-03-03] MEDS: Clindamycin 900 MG/50 ML BAG 75 MG IV (11:38)
[2023-03-03] MEDS: Oxymetazoline 0.05% 1 SPRAY SPRAY.BTL 15 SPRAY (11:57)
[2023-03-03] MEDS: Lidocaine 1% /Epi 1:100 (20ml) 20 ML Vial (12:00)
[2023-03-03] MEDS: Mupirocin Ointment 22gm Tube 1 APPLIC (12:56)
[2023-03-03] MEDS: HYDROcodone Bitartrate/Apap 5/325 Tablet PO (15:09)
== END 2023-03-03 15:40 | disposition home or self-care (01) ==
LOC: SDC 08:59 → AC 09:22
PROVIDERS: PCP Internal Medicine; Referring Provider Otolaryngology; Visit Provider Otolaryngology
PROC: (CPT 30520; principal; 2023-03-03 10:45)
DX: J34.2 Deviated nasal septum (principal); J34.3 Hypertrophy of nasal turbinates; J32.4 Chronic pansinusitis; J33.0 Polyp of nasal cavity; K21.9 Gastro-esophageal reflux disease without esophagitis; F41.9 Anxiety disorder, unspecified; Z87.891 Personal history of nicotine dependence
CPT/HCPCS: 30520; 31267; 31255; 30140; 00160; 36415; 80048; 85027; 88304; 88305; 88311; 93005; J7120; J2405

== ENCOUNTER → 2023-09-21 | Outpatient (CLI) | payer MEDICAID, SELFPAY ==
--- NOTE | 2023-09-21 09:06 | BI_ITS ---
MAMMOGRAPHY - BILATERAL SCREENING REASON FOR EXAM: Female, 57 years old. Routine annual screening examination. PERTINENT HISTORY: Grandmother with breast cancer. TECHNIQUE: Digital bilateral breast mari (3D mammographic acquisition) in the CC and MLO projections. 2-D mediolateral oblique (MLO) and craniocaudad (CC) views of both breasts were obtained. CAD: Full Field Digital Mammography with Computer Added Detection was performed. COMPARISON: Comparison is made with prior study September 01, 2022 and November 05, 2020. FINDINGS: Breast Composition: The breasts are heterogeneously dense, which may obscure small masses. There is a 1 cm well-defined nodule in the slightly upper anterior lateral aspect of the left breast. This is unchanged. Prior sonogram demonstrated this to be a small cyst. No other significant abnormalities are identified. There has been no significant change since the prior study. BI/SCRN MAMM (CAD)W/MARI BILAT IMPRESSION: Stable bilateral screening mammogram. Yearly follow-up mammogram recommended. (A) ASSESSMENT CATEGORY: BIRADS Category 2: Benign. A letter regarding these results will be sent to the patient by the facility within 30 days. Approximately 10% of breast cancers are not detected by mammography. A normal mammogram should not delay biopsy of a clinically suspicious abnormality. [id number] Electronically Signed: Jaime Roach MD at 10:37 EDT ,
[2023-09-21 09:42] LABS: Absolute Neutrophil Count 3.6 X10^3/uL (2.0-7.7); Basophil# 0.05 X10^3/uL; Basophil% 0.7 % (0-1); Eosinophils% 4.4 % (0-5); Hematocrit 40.1 % (37-47); Hemoglobin 13.3 g/dL (12.0-15.0); Lymphocyte % 34.1 % (19-41); Mean Corp Hgb Conc 33.2 g/dL (32-36); Mean Corpuscular Hgb 29.4 pg (27.0-32.0); Mean Corpuscular Volume 88.5 fL (81-99); Mean Platelet Vol. 9.5 fl (6.2-12.0); Monocyte# 0.49 X10^3/uL; Monocyte% 7.3 % (0-10); NRBC Flagged by Analyzer 0 % (0-5); Neutrophil # 3.59 X10^3/uL (2.7-7.7); Neutrophil % 53.2 % (47-70); Platelet Count 279 K/mm3 (150-450); RBC Distribution Width CV 13.3 % (11.6-14.6); Red Blood Count 4.53 M/mm3 (4.2-5.4); White Blood Count 6.8 K/mm3 (4.4-11.0)
[2023-09-21 10:00] LABS: Vitamin D,25 Hydroxy 33.1 ng/mL
[2023-09-21 10:06] LABS: ALB/GLOB Ratio 1.1 RATIO (0.9-2.4); AST(SGOT) 19 U/L (15-37); Alanine Aminotransfer ALT/SGPT 23 U/L (13-56); Albumin, Serum 3.6 g/dL (3.2-5.0); Alkaline Phosphatase 77 U/L (45-117); Anion Gap 5 (5-15); BUN 8 mg/dL (7-18); BUN/Creat Ratio 10.1 RATIO (10-20); Calcium,Total 9.2 mg/dL (8.5-10.1); Chloride 110 mmol/L (98-107); Cholesterol 213 mg/dL (200); EST Glomerular Filtration Rate 79 mL/min (>60); Est Glom Filt Rate - Afr Amer 95 mL/min (>60); Globulin 3.3 g/dL (2.2-4.2); Glucose 111 mg/dL (74-106); High Density Lipoprotein 96 mg/dL; Potassium 3.8 mmol/L (3.5-5.1); Protein, Total 6.9 g/dL (6.4-8.2); Sodium Level 142 mmol/L (136-145); Thyroid Stim Hormone (TSH) 1.79 uIU/mL (0.358-3.74); Triglycerides 81 mg/dL; Very Low Density Lipoprotein 16 mg/dL (5-40)
[2023-09-21 12:25] LABS: Hemoglobin A1c 4.9 % (3.8-5.6)
== END | disposition home or self-care (01) ==
PROVIDERS: PCP Internal Medicine; Referring Provider Internal Medicine; Visit Provider Internal Medicine
DX: Z00.00 Encounter for general adult medical examination without abnormal findings (principal); Z12.31 Encounter for screening mammogram for malignant neoplasm of breast; E66.9 Obesity, unspecified; E78.5 Hyperlipidemia, unspecified; F41.9 Anxiety disorder, unspecified; R73.9 Hyperglycemia, unspecified; E55.9 Vitamin D deficiency, unspecified; Z13.220 Encounter for screening for lipoid disorders
CPT/HCPCS: 36415; 77063; 77067; 80053; 80061; 82306; 83036; 84443; 85025

== ENCOUNTER → 2024-11-29 | Outpatient (CLI) | payer MEDICAID, SELFPAY ==
[2024-11-29 11:17] LABS: Hematocrit 41.5 % (37-47); Hemoglobin 13.8 g/dL (12.0-15.0); Immature Granulocytes Count 0.020 X10^3/uL (0.0-0.0); Mean Corp Hgb Conc 33.3 g/dL (32-36); Mean Corpuscular Volume 90.0 fL (81-99); Mean Platelet Vol. 9.7 fl (6.2-12.0); NRBC Flagged by Analyzer 0 % (0-5); Platelet Count 278 K/mm3 (150-450); RBC Distribution Width CV 13.2 % (11.6-14.6); RBC Distribution Width SD 43.0 fl (35.1-43.9); Red Blood Count 4.61 M/mm3 (4.2-5.4); White Blood Count 6.8 K/mm3 (4.4-11.0)
[2024-11-29 12:16] LABS: AST(SGOT) 20 U/L (<=31); Alanine Aminotransfer ALT/SGPT 19 U/L (<=34); Albumin, Serum 4.2 g/dL (3.5-5.0); Alkaline Phosphatase 69 U/L (35-104); Anion Gap 10 (5-15); BUN 14 mg/dL (4-19); BUN/Creat Ratio 18.7 RATIO (10-20); Calcium,Total 9.4 mg/dL (7.6-11.0); Carbon Dioxide 26.1 mmol/L (21.0-32.0); Chloride 103 mmol/L (98-108); Cholesterol 192 mg/dL (<=200); Globulin 2.5 g/dL (2.2-4.2); Glucose 94 mg/dL (70-99); Low Density Lipoprotein Calc. 87 mg/dL; Potassium 4.4 mmol/L (3.3-5.1); Triglycerides 90 mg/dL; Very Low Density Lipoprotein 18 mg/dL (5-40); cholesterol:hdl ratio screen 2.20
[2024-11-29 12:18] LABS: Vitamin B12 418 pg/mL (180-914); Vitamin D,25 Hydroxy 59.8 ng/mL (30-100)
--- OUTSIDE RECORDS SUMMARY | 2024-11-29 20:09 | XMS RPT_ITS | CCD ---
Author Organization [facility] Care Team Providers Care Dental Nurse Name Role Phone FLORESITA TORRES Admitting Unavailable FLORESITA TORRES Attending Unavailable FLORESITA TORRES Primary Care Unavailable HIEN MENA Consulting Unavailable PROVIDER, UNKNOWN Consulting Unavailable Dr. Camille Cox Primary Care Provider Dr. Camille Cox Attending Provider Camille Cox Attending Unavailable Camille Cox Primary Care Unavailable Kenny RETANA, Dr. Obrien Primary Care Provider Kenny RETANA, Dr. Obrien Attending Provider Allergies Allergy Classification Reported Allergen(s) Allergy Type Date of Onset Reaction(s) Facility (3 sources) Amoxicillin Drug Allergy 08-14-2022 [facility] (3 sources) Clavulanate Drug Allergy 08-14-2022 [facility] (1 source) Amoxicillin Drug Allergy 04-09-[address] [facility] (1 source) Clavulanate Drug Allergy 04-09-[address] [facility] Medications Current Medications Medication Drug Class(es) Dates Sig (Normalized) Sig (Original) azithromycin 250 mg oral tablet (1 source) Macrolide Antimicrobial Start: 08-14-2022 Azithromycin Active 0 PO .COMPLEX August 14, 2022 12:00am For 250 mg dose pack: take 500 mg today (day 1), then 250 mg for 4 days (days 2-5) PO cetirizine hydrochloride 10 mg oral tablet (3 sources) Histamine-1 Receptor Antagonist Start: 05-12-2019 take 1 tablet by mouth once daily Cetirizine 10 MG tablet Active 10 mg PO DAILY May 12, 2019 1:00am cholecalciferol 0.01 mg oral capsule (1 source) Vitamin D Start: 11-28-2024 take 1 capsule by mouth once daily Cholecalciferol (Vitamin D3) 10 mcg (400 unit) capsule Active 10 ug PO daily November 28, 2024 12:00am citalopram 10 mg oral tablet (17 sources) Serotonin Reuptake Inhibitor Start: 04-23-2021 End: 02-02-2024 take 1 tablet by mouth once daily Citalopram 10 mg tablet Active 10 mg PO DAILY 90 February 02, 2024 6:14pm Start: 05-12-2019 End: 04-23-2021 take 1 tablet by mouth once daily Citalopram 20 MG tablet Discontinued 20 mg PO DAILY May 12, 2019 1:00am April 23, 2021 10:04am codeine phosphate 2 mg/ml / guaiFENesin 20 mg/ml oral solution (4 sources) Opioid Agonist Start: 08-15-2022 take 1 mL by mouth every six hours Codeine-Guaifenesin Active 5 ML PO EVERY 6 HOURS 120 August 15, 2022 4:11pm Start: 08-14-2022 End: 08-15-2022 take 1 mL by mouth once Codeine-Guaifenesin 10-100 m g/5 mL liquid Discontinued 5 mL PO ONCE 120 0 August 14, 2022 12:00am August 15, 2022 4:12pm Start: 08-14-2022 End: 08-15-2022 take 1 mL by mouth once Codeine-Guaifenesin Disconti nued 5 ML PO ONCE 120 August 13, 2022 11:00pm August 15, 2022 3:12pm GLP-1 (compounded semaglutide) (1 source) Start: 11-28-2024 GLP-1 (compounded semaglutide) Active 1 mg SC November 28, 2024 12:00am LORazepam 0.5 mg oral tablet (3 sources) Benzodiazepine Start: 04-23-2021 take 1 tablet by mouth once daily as needed for anxiety Lorazepam 0.5 mg tablet Active 0.5 mg PO DAILY as needed for anxiety April 23, 2021 1:00am omeprazole 40 mg delayed release oral capsule (14 sources) Proton Pump Inhibitor Start: 05-12-2019 End: 02-02-2024 take 1 capsule by mouth once daily Omeprazole 40 mg capsule,delayed release(DR/EC) Active 40 mg PO DAILY 90 February 02, 2024 6:13pm simvastatin 40 mg oral tablet (14 sources) HMG-CoA Reductase Inhibitor Start: 05-12-2019 End: 02-02-2024 take 1 tablet by mouth at bedtime Simvastatin 40 mg tablet Active 40 mg PO AT BEDTIME 90 3 February 02, 2024 6:14pm Completed/Discontinued Medications Medication Drug Class(es) Dates Sig (Normalized) Sig (Original) Berberine (1 source) Start: 04-09-2023 End: 11-28-2024 berberine Discontinued PO April 09, 2023 1:00am November 28, 2024 2:31pm Multivitamin 1 EACH tablet (1 source) Start: 05-12-2019 End: 04-23-2022 Multivitamin 1 EACH tablet Discontinued 1 NMA PO DAILY May 12, 2019 1:00am April 23, 2022 11:06am Multivitamin preparation (2 sources) Start: 05-12-2019 End: 04-23-2022 Multivitamin Discontinued 1 EACH PO DAILY May 12, 2019 12:00am April 23, 2022 10:06am Start: 05-12-2019 End: 04-23-2022 Multivitamin Discontinued 1 EACH PO DAILY May 12, 2019 1:00am April 23, 2022 11:06am Nirmatrelvir-Ritonavir (6 sources) Start: 03-28-2022 End: 04-23-2022 Nirmatrelvir-Ritonavir (Paxl ovid (Eua)) 300 mg (150 mg x 2)-100 mg tablets,dose pack Discontinued 0 PO .COMPLEX 30 March 28, 2022 10:00am April 23, 2022 11:06am take TWO 150 mg tablets of nirmatrelvir with ONE 100 mg tablet of ritonavir twice daily for 5 days PO Start: 03-28-2022 End: 04-23-2022 Nirmatrelvir-Ritonavir (Paxl ovid (Eua)) 300 mg (150 mg x 2)-100 mg tablets,dose pack Discontinued 0 PO .COMPLEX 30 March 28, 2022 9:00am April 23, 2022 10:06am take TWO 150 mg tablets of nirmatrelvir with ONE 100 mg tablet of ritonavir twice daily for 5 days PO Start: 03-28-2022 End: 04-23-2022 Nirmatrelvir-Ritonavir (Paxl ovid (Eua)) 300 mg (150 mg x 2)-100 mg tablets,dose pack Discontinued 0 PO .COMPLEX March 28, 2022 10:00am April 23, 2022 11:06am take TWO 150 mg tablets of nirmatrelvir with ONE 100 mg tablet of ritonavir twice daily for 5 days PO Start: 03-27-2022 End: 03-28-2022 Nirmatrelvir-Ritonavir (Paxl ovid (Eua)) 300 mg (150 mg x 2)-100 mg tablets,dose pack Discontinued 0 PO .COMPLEX 30 March 27, 2022 1:00am March 28, 2022 10:00am take TWO 150 mg tablets of nirmatrelvir with ONE 100 mg tablet of ritonavir twice daily for 5 days PO Start: 03-27-2022 End: 03-28-2022 Nirmatrelvir-Ritonavir (Paxl ovid (Eua)) 300 mg (150 mg x 2)-100 mg tablets,dose pack Discontinued 0 PO .COMPLEX March 27, 2022 12:00am March 28, 2022 9:00am take TWO 150 mg tablets of nirmatrelvir with ONE 100 mg tablet of ritonavir twice daily for 5 days PO Start: 03-27-2022 End: 03-28-2022 Nirmatrelvir-Ritonavir (Paxl ovid (Eua)) 300 mg (150 mg x 2)-100 mg tablets,dose pack Discontinued 0 PO .COMPLEX March 27, 2022 1:00am March 28, 2022 10:00am take TWO 150 mg tablets of nirmatrelvir with ONE 100 mg tablet of ritonavir twice daily for 5 days PO 72 hr scopolamine 0.0139 mg/hr transdermal system (1 source) Anticholinergic Start: 04-11-2024 End: 11-28-2024 Scopolamine Base 1 mg over 3 days patch 3 day Discontinued 1 NMA TD Every 3 Days as needed for motion sickness 4 April 11, 2024 1:00am November 28, 2024 2:32pm Problems Problem Classification Problem Date Documented Date Episodic/Chronic Anxiety disorders (3 sources) Anxiety; Translations: [Anxiety disorder, unspecified] 04-23-2021 Chronic Diabetes mellitus without complication (3 sources) Hyperglycemia; Translations: [Hyperglycemia, unspecified] 04-23-2022 Episodic Disorders of lipid metabolism (3 sources) Hyperlipidemia; Translations: [Hyperlipidemia, unspecified] 04-23-2021 Chronic Esophageal disorders (6 sources) Gastroesophageal reflux disease; Translations: [Gastro-esophageal reflux disease without esophagitis] 04-23-2021 Chronic Nutritional deficiencies (3 sources) Vitamin D deficiency; Translations: [Vitamin D deficiency, unspecified] 04-23-2022 Chronic Other and unspecified benign neoplasm (2 sources) Polyp of colon; Translations: [Polyp of colon] Episodic Other nutritional; endocrine; and metabolic disorders (3 sources) Body mass index 30+ - obesity; Translations: [Obesity, unspecified] 04-23-2021 Chronic Other screening for suspected conditions (not mental disorders or infectious disease) (6 sources) Encounter for screening mammogram for malignant neoplasm of breast; Translations: [Patient encounter status] Onset: 12-15-2018 05-20-2019 Episodic Other upper respiratory disease (3 sources) Seasonal allergy; Translations: [Other seasonal allergic rhinitis] 04-23-2021 Chronic Other upper respiratory disease (2 sources) Hypertrophy of nasal turbinates; Translations: [Hypertrophy of nasal turbinates] 03-03-2023 Episodic Other upper respiratory disease (2 sources) Polyp of nasal sinus; Translations: [Other polyp of sinus] 03-03-2023 Episodic Other upper respiratory disease (2 sources) Nasal congestion; Translations: [Nasal congestion] 03-03-2023 Episodic Other upper respiratory disease (2 sources) Deviated nasal septum; Translations: [Deviated nasal septum] 03-03-2023 Episodic Other upper respiratory disease (1 source) Deviated nasal septum; Translations: [Deviated nasal septum] 03-03-2023 Episodic Other upper respiratory disease (1 source) Nasal congestion; Translations: [Other disease of nasal cavity and sinuses] 03-03-2023 Episodic Other upper respiratory disease (1 source) Hypertrophy of nasal turbinates; Translations: [Hypertrophy of nasal turbinates] 03-03-2023 Episodic Other upper respiratory disease (1 source) Other polyp of sinus; Translations: [Other polyp of sinus] 03-03-2023 Episodic Other upper respiratory infections (3 sources) Chronic pansinusitis; Translations: [Chronic pansinusitis] 03-03-2023 Chronic Other upper respiratory infections (4 sources) Acute upper respiratory infection; Translations: [Acute upper respiratory infection, unspecified] 08-14-2022 Episodic Residual codes; unclassified (3 sources) Past history of procedure; Translations: [Other specified postprocedural states] 04-23-2021 Episodic Comment on above: SEVERAL Residual codes; unclassified (3 sources) History of hernia repair; Translations: [Other specified postprocedural states] 04-23-2021 Episodic Residual codes; unclassified (3 sources) History of colonoscopy; Translations: [Other specified postprocedural states] 04-23-2021 Episodic Comment on above: 2019 Unclassified (2 sources) K63.5 - Polyp of colon Results Test Name Value Interpretation Reference Range Facility Basophil percentageOrdered B y: Berlin Milian on 02-24-2023 Chloride [Moles/Vol] 111 mmol/L 98-107 [facility] Glucose [Mass/Vol] 118 mg/dL 74-106 [facility] Comment on above: Fasting Glucose resu lt from 100 to 125 mg/dL suggests IMPAIRED HOMEOSTASIS per A.D.A. criteria. Potassium [Moles/Vol] 4.0 mmol/L 3.5-5.[address] [facility] Sodium [Moles/Vol] 142 mmol/L 136-145 [facility] WBC (Bld) [#/Vol] 5.7 10*3/uL 4.4-11.0 [facility] Blood erythrocytes count (nu mber/volume)Ordered By: Berlin Milian on 02-24-2023 RBC (Bld) [#/Vol] 4.69 10*6/uL 4.2-5.4 [facility] Blood hemoglobin measurement (mass/volume)Ordered By: Berlin Milian on 02-24-2023 Hemoglobin (Bld) [Mass/Vol] 14.0 g/dL 12.0-15.[address] [facility] Blood platelet mean volumeOr dered By: Berlin Milian on 02-24-2023 Platelet mean volume (Bld) [Entitic vol] 9.6 fL 6.2-12.[address] [facility] Determination of erythrocyte mean corpuscular volume (MCV)Ordered By: Berlin Milian on 02-24-2023 MCV (RBC) [Entitic vol] 90.6 fL 81-99 [facility] Hematocrit Auto (Bld) [Volum e fraction]Ordered By: Berlin Milian on 02-24-2023 Hematocrit (Bld) [Volume fraction] 42.5 % 37-[address] [facility] Laboratory - Chemistry and C hemistry - challengeOrdered By: Berlin Milian on 02-24-2023 CO2 [Moles/Vol] 28.0 mmol/L 21.0-32.[address] [facility] Urea nitrogen/Creatinine [Mass ratio] 13.9 mg/mg 10-[address] [facility] Laboratory - Hematology and Cell countsOrdered By: Berlin Milian on 02-24-2023 Erythrocyte distribution width (RBC) [Entitic vol] 45.3 fL 35.1-43.[address] [facility] Erythrocyte distribution width (RBC) [Ratio] 13.9 % 11.6-14.[address] [facility] MCH (RBC) [Entitic mass] 29.9 pg 27.0-32.[address] [facility] MCHC Auto (RBC) [Mass/Vol]Or dered By: Berlin Milian on 02-24-2023 MCHC (RBC) [Mass/Vol] 32.9 g/dL 32-[address] [facility] No Panel InformationOrdered By: Berlin Milian on 02-24-2023 Estimated GFR (MDRD) Amer 97 mL/min >[address] [facility] Comment on above: GFR Calc Estimated GFR (MDRD) Non-Af Amer 80 mL/min >[address] [facility] Comment on above: Non- GFR Calc Platelets bldOrdered By: Refugio Milian on 02-24-2023 Platelets (Bld) [#/Vol] 291 10*3/uL 150-[address] [facility] Serum or plasma calcium nahomi urement (mass/volume)Ordered By: Berlin Milian on 02-24-2023 Calcium [Mass/Vol] 9.3 mg/dL 8.5-10.1 [facility] Serum or plasma creatinine m easurement (mass/volume)Ordered By: Berlin Milian on 02-24-2023 Creatinine [Mass/Vol] 0.79 mg/dL 0.55-1.[address] [facility] Comment on above: The validity of the calculated GFR & GFRAA in patients over 70 years has not been determined. Clinical correlation is essential. Serum or plasma urea nitroge n measurement (mass/volume)Ordered By: Berlin Milian on 02-24-2023 Urea nitrogen [Mass/Vol] 11 mg/dL 7-[address] [facility] Thin prep Papanicolaou smear with manual screeningOrdered By: Berlin Milian on 02-24-2023 Thin prep Papanicolaou smear with manual screening 3 5-[address] [facility] Absolute lymphocyte countOrd ered By: Dr. Cox on 09-01-2022 Lymphocytes Auto (Unsp spec) [#/Vol] 2.31 10*3/uL 0.83-4.[address] [facility] Basophil percentageOrdered B y: Dr. Cox on 09-01-2022 Basophils/100 WBC (Bld) 0.9 % 0-1 [facility] Bilirubin [Mass/Vol] 0.60 mg/dL 0.20-1.00 [facility] Comment on above: For patients on eltr ombopag therapy, use of Dimension [place] TBIL is not recommended. Chloride [Moles/Vol] 108 mmol/L 98-107 [facility] Cholesterol [Mass/Vol] 209 mg/dL <200 [facility] Comment on above: <200 mg/dL Desirable 200-240 mg/dL Borderline >240 mg/dL High Risk Eosinophils/100 WBC (Bld) 7.3 % 0-[address] [facility] Glucose [Mass/Vol] 98 mg/dL 74-106 [facility] Neutrophils (Bld) [#/Vol] 3.0 10*3/uL 2.0-7.[address] [facility] Neutrophils/100 WBC (Bld) 46.9 % 47-[address] [facility] Potassium [Moles/Vol] 3.7 mmol/L 3.5-5.[address] [facility] Protein [Mass/Vol] 7.2 g/dL 6.4-8.2 [facility] Sodium [Moles/Vol] 144 mmol/L 136-145 [facility] Triglyceride [Mass/Vol] 104 mg/dL <199 [facility] Comment on above: The drugs N-Acetylcy steine and Metamizole may falsely depress this assay.Serum Triglycerides Reference Interval Normal <150 mg/dL Borderline high 150 - 199 mg/dL High 200 - 499 mg/dL Very High > or = 500 mg/dL WBC (Bld) [#/Vol] 6.5 10*3/uL 4.4-11.0 [facility] Blood erythrocytes count (nu mber/volume)Ordered By: Dr. Cox on 09-01-2022 RBC (Bld) [#/Vol] 4.57 10*6/uL 4.2-5.4 [facility] Blood hemoglobin measurement (mass/volume)Ordered By: Dr. Cox on 09-01-2022 Hemoglobin (Bld) [Mass/Vol] 13.5 g/dL 12.0-15.[address] [facility] Blood lymphocytes/100 leukoc ytesOrdered By: Dr. Cox on 09-01-2022 Lymphocytes/100 WBC (Bld) 35.8 % 19-[address] [facility] Blood monocytes/100 leukocyt esOrdered By: Dr. Cox on 09-01-2022 Monocytes/100 WBC (Bld) 8.8 % 0-10 [facility] Blood platelet mean volumeOr dered By: Dr. Cox on 09-01-2022 Platelet mean volume (Bld) [Entitic vol] 9.6 fL 6.2-12.[address] [facility] Determination of erythrocyte mean corpuscular volume (MCV)Ordered By: Dr. Cox on 09-01-2022 MCV (RBC) [Entitic vol] 89.7 fL 81-99 [facility] Hematocrit Auto (Bld) [Volum e fraction]Ordered By: Dr. Cox on 09-01-2022 Hematocrit (Bld) [Volume fraction] 41.0 % 37-[address] [facility] Laboratory - Chemistry and C hemistry - challengeOrdered By: Dr. Cox on 09-01-2022 ALP [Catalytic activity/Vol] 74 U/L 45-[address] [facility] ALT [Catalytic activity/Vol] 36 U/L 13-[address] [facility] CO2 [Moles/Vol] 29.0 mmol/L 21.0-32.[address] [facility] Globulin (S) [Mass/Vol] 3.3 g/dL 2.2-4.2 [facility] Urea nitrogen/Creatinine [Mass ratio] 19.0 mg/mg 10-[address] [facility] Laboratory - Hematology and Cell countsOrdered By: Dr. Cox on 09-01-2022 Erythrocyte distribution width (RBC) [Entitic vol] 44.6 fL 35.1-43.[address] [facility] Erythrocyte distribution width (RBC) [Ratio] 13.6 % 11.6-14.[address] [facility] Immature granulocytes/100 WBC (Bld) 0.300 % 0.0-0.[address] [facility] Comment on above: IG% - Immature Granu locytes (promyelocytes, myelocytes and metamyelocytes) > 1% indicates that a LEFT SHIFT is Present. MCH (RBC) [Entitic mass] 29.5 pg 27.0-32.[address] [facility] Nucleated RBC/100 WBC (Bld) [Ratio] 0 % 0-[address] [facility] MCHC Auto (RBC) [Mass/Vol]Or dered By: Dr. Cox on 09-01-2022 MCHC (RBC) [Mass/Vol] 32.9 g/dL 32-[address] [facility] No Panel InformationOrdered By: Dr. Cox on 09-01-2022 Estimated GFR (MDRD) Amer 97 mL/min >[address] [facility] Comment on above: GFR Calc Estimated GFR (MDRD) Non-Af Amer 80 mL/min >[address] [facility] Comment on above: Non- GFR Calc Vitamin D 25-Hydroxy 34.8 ng/mL [facility] Comment on above: Vitamin D 25(OH) Sta tus Range Deficiency <20 ng/mL (50nmol/L) Insufficiency 20 - 30 ng/mL (50 - 75 nmol/L) Sufficiency 30 - 100 ng/mL (75 - 250 nmol/L) Toxicity >100 ng/mL (>250 nmol/L) Platelets bldOrdered By: Dr. Cox on 09-01-2022 Platelets (Bld) [#/Vol] 310 10*3/uL 150-[address] [facility] Serum or plasma albumin nahomi urement (mass/volume)Ordered By: Dr. Cox on 09-01-2022 Albumin [Mass/Vol] 3.9 g/dL 3.2-5.0 [facility] Serum or plasma albumin/glob ulin mass ratioOrdered By: Dr. Cox on 09-01-2022 Albumin/Globulin [Mass ratio] 1.2 {ratio} 0.9-2.[address] [facility] Serum or plasma calcium nahomi urement (mass/volume)Ordered By: Dr. Cox on 09-01-2022 Calcium [Mass/Vol] 9.2 mg/dL 8.5-10.1 [facility] Serum or plasma cholesterol in HDL measurement (mass/volume)Ordered By: Dr. Cox on 09-01-2022 Cholesterol in HDL [Mass/Vol] 101 mg/dL >[address] [facility] Comment on above: The drugs N-Acetylcy steine and Metamizole may falsely depress this assay. Reference Range HDL <40 mg/dL Low HDL Cholesterol HDL >or= 60 mg/dL High HDL Cholesterol Serum or plasma cholesterol in VLDL measurement (mass/volume)Ordered By: Dr. Cox on 09-01-2022 Cholesterol in VLDL [Mass/Vol] 21 mg/dL 5-[address] [facility] Serum or plasma creatinine m easurement (mass/volume)Ordered By: Dr. Cox on 09-01-2022 Creatinine [Mass/Vol] 0.79 mg/dL 0.55-1.[address] [facility] Comment on above: The validity of the calculated GFR & GFRAA in patients over 70 years has not been determined. Clinical correlation is essential. Serum or plasma low density lipoprotein (LDL) cholesterol measurement (mass/volume)Ordered By: Dr. Cox on 09-01-2022 Cholesterol in LDL [Mass/Vol] 87 mg/dL 0-[address] [facility] Serum or plasma urea nitroge n measurement (mass/volume)Ordered By: Dr. Cox on 09-01-2022 Urea nitrogen [Mass/Vol] 15 mg/dL 7-[address] [facility] Thin prep Papanicolaou smear with manual screeningOrdered By: Dr. Cox on 09-01-2022 Thin prep Papanicolaou smear with manual screening 24 U/L [address] [facility] Thin prep Papanicolaou smear with manual screening 7 5-[address] [facility] Whole blood hemoglobin A1c/t otal hemoglobin ratio (mass fraction)Ordered By: Dr. Cox on 09-01-2022 HbA1c (Bld) [Mass fraction] 5.1 % 3.8-5.[address] [facility] Comment on above: Normal < 5.7 % Predi abetic 5.7 - 6.4 % Diabetic >or= 6.5 % Please note range changes. MAMM DIGITAL BILAT SCREENon 12-15-2018 MAMM DIGITAL BILAT SCREEN [place] [address] Patient: MONI ROBERTS Phone#: : [phone] Age: 53 Gender: F Pt. Type: Out Account: [id number] Location: [facility] Ordering: FLORESITA TORRES Exam Date: 12/15/2018/8:29 Family Phys: HIEN MENA Charge Code: [id number] Physician: [place] Order #: [id number] DLP Dose#: PROCEDURE: MAMM BILAT DIGITAL SCREENING WITH CAD COMPARISON: [facility], BILAT SCREENING, 04/30/2012, 10:54. [facility], BILAT SCREENING, 08/02/2013, 8:03. [facility], BILAT SCREENING, 08/10/2015, 7:59. [facility], BILAT SCREENING, 10/22/2017, 8:39. INDICATIONS: Screening BREAST COMPOSITION: Scattered fibroglandular densities (25-50% glandular). FINDINGS: DIAGNOSTIC CATEGORY 1--NEGATIVE ASSESSMENT. RIGHT BREAST: No significant suspicious finding. No significant change has occurred. LEFT BREAST: No significant suspicious finding. No significant change has occurred. RECOMMENDATIONS: ROUTINE MAMMOGRAM AND CLINICAL EVALUATION. PLEASE NOTE: A NORMAL MAMMOGRAM DOES NOT EXCLUDE THE POSSIBILITY OF BREAST CANCER. A CLINICALLY SUSPICIOUS PALPABLE LUMP SHOULD BE BIOPSIED. THIS FACILITY UTILIZES A REMINDER SYSTEM TO ENSURE THAT ALL PATIENTS RECEIVE REMINDER LETTERS FOR APPOINTMENTS. THIS INCLUDES REMINDERS FOR ROUTINE MAMMOGRAMS, DIAGNOSITC MAMMOGRAMS, OR OTHER BREAST IMAGING INTERVENTIONS WHEN APPROPRIATE. THIS PATIENT WILL BE PLACED IN THE APPROPRIATE REMINDER SYSTEM. Dictated by: Frida Lopez MD on 12/15/2018 at 9:47 Approved by: Frida Lopez MD on 12/15/2018 at 9:47 Normal [facility] Vital Signs Date Time Vital Sign Value Performing Clinician Sudarshan banks 11-28-2024 14:35-0400 Body height 160.[address] Camille Cox MD Work Phone: [facility] 11-28-2024 14:35-0400 Body mass index (BMI) [Ratio] 33.3 kg/m2 Dr. Camille Cox MD Work Phone: [facility] 11-28-2024 14:35-0400 Body temperature 98.4 [degF] Dr. Camille Cox MD Work Phone: [facility] 11-28-2024 14:35-0400 Body weight 85.[address] Camille Cox MD Work Phone: [facility] 11-28-2024 14:35-0400 Diastolic blood pressure 81 mm[Hg] Dr. Camille Cox MD Work Phone: [facility] 11-28-2024 14:35-0400 Heart rate 74 /min Dr. Camille Cox MD Work Phone: [facility] 11-28-2024 14:35-0400 Respiratory rate 16 /min Dr. Camille Cox MD Work Phone: [facility] 11-28-2024 14:35-0400 SaO2% (BldA) [Mass fraction] 96 % Dr. Camille Cox MD Work Phone: [facility] 11-28-2024 14:35-0400 Systolic blood pressure 127 mm[Hg] Dr. Camille Cox MD Work Phone: [facility] 03-03-2023 15:40-0500 Body temperature 97.2 [degF] [facility] 03-03-2023 15:40-0500 Diastolic blood pressure 73 mm[Hg] [facility] 03-03-2023 15:40-0500 Heart rate 72 /min [facility] 03-03-2023 15:40-0500 Respiratory rate 16 /min [facility] 03-03-2023 15:40-0500 SaO2% (BldA) [Mass fraction] 94 % [facility] 03-03-2023 15:40-0500 Systolic blood pressure 138 mm[Hg] [facility] 03-03-2023 14:00-0500 Inhaled oxygen flow rate 1 L/min [facility] 03-03-2023 09:41-0500 Body height 160.02 cm [facility] 03-03-2023 09:41-0500 Body mass index (BMI) [Ratio] 35.7 kg/m2 [facility] 03-03-2023 09:41-0500 Body weight 91.6 kg [facility] 08-14-2022 14:25-0400 Body height 160.[address] Camille Cox Work Phone: [facility] 08-14-2022 14:25-0400 Body mass index (BMI) [Ratio] 37.6 kg/m2 Dr. Camille Cox Work Phone: [facility] 08-14-2022 14:25-0400 Body temperature 97.6 [degF] Dr. Camille Cox Work Phone: [facility] [facility] 08-14-2022 14:25-0400 Body weight 96.[address] Camille Cox Work Phone: [facility] 08-14-2022 14:25-0400 Diastolic blood pressure 77 mm[Hg] Dr. Camille Cox Work Phone: [facility] 08-14-2022 14:25-0400 Heart rate 77 /min Dr. Camille Cox Work Phone: [facility] 08-14-2022 14:25-0400 Respiratory rate 18 /min Dr. Camille Cox Work Phone: [facility] 08-14-2022 14:25-0400 SaO2% (BldA) [Mass fraction] 94 % Dr. Camille Cox Work Phone: [facility] 08-14-2022 14:25-0400 Systolic blood pressure 125 mm[Hg] Dr. Camille Cox Work Phone: [facility] Encounters Encounter Date Encounter Type Care Provider Facility Start: 11-28-2024 End: 11-28-2024 ambulatory Camille Cox Facility:[facility] Start: 11-28-2024 End: 11-28-[address] Camille Cox MD -[facility] Work Phone: Start: 03-03-2023 End: 03-03-2023 Admission to same day surgery center [facility] Start: 03-03-2023 End: 03-03-[address] [facility] Work Phone: Start: 09-16-2022 End: 09-16-[address] Camille Cox Work Phone: [facility] Work Phone: Start: 09-16-2022 End: 09-16-[address] Camille Cox Work Phone: [facility] Ultrasound Start: 09-01-2022 End: 09-01-[address] Camille Cox Work Phone: [facility]Outpatient Breast Imaging Start: 08-14-2022 End: 08-14-[address] Camille Cox Work Phone: [facility] Start: 04-23-[address] Camille Cox Work Phone: [facility] Start: 12-15-2018 End: 12-15-2018 Patient encounter procedure FLORESITA SHRINER [facility] Procedures Date Procedure Procedure Detail Performing Clinician Start: 03-03-2023 Functional Endoscopoic Sinus Surgery (Bilateral) Start: 09-16-[address] Camille Lopez hner Work Phone: Start: 09-01-[address] Camille Cox Work Phone: H/O: hysterectomy History of hysterectomy Dr. Camille Cox Work Phone: Plan of Treatment Date Care Activity Detail Author Start: 03-03-2023 Patient discharge [facility] CBC W Auto Different ial panel - Blood [facility] Comprehensive metabo lic 1999 panel - Serum or Plasma [facility] Hemoglobin A1c/Hemog lobin.total in Blood [facility] Lipid 1996 panel - S tori or Plasma [facility] MG Breast - bilateral Screening [facility] Patient referral [facility] Work Phone: Thyroid stimulating hormone measurement [facility] Vitamin B12 measurement [facility] Vitamin D, 25-hydrox y measurement [facility] Payers Date Payer Category Payer Self-pay [id number] 2024 Unknown [id number] 2010 Unknown [id number] 1965 Unknown [id number] Unknown [id number] Social History Date Type Detail Facility Start: 08-14-2022 End: 02-23-2023 Tobacco smoking status NHIS Unknown if ever smoked [facility] Start: 05-12-2019 Non-smoker [facility] Start: 1965 Sex Assigned At Female [facility] Start: 04-09-2023 Tobacco smoking stat us NHIS Ex-smoker (finding) [facility] Medical Equipment Procedure Code Equipment Code Equipment Origin al Text Equipment Identifier Dates FESS (functional endoscopic sinus surgery) Plant polysaccharide haemostatic agent, bioabsorbable [id number] FDA Start: 03-03-2023 Goals Date Patient Goal Desired Activity /State Mental Status Date Assessment Result Facility 03-03-2023 Cognitive function Level Of Cons ciousness Follows Commands;Drowsy [facility] Work Phone: 03-03-2023 Cognitive function Voice/Name [facility] Work Phone: Procedure note 03-03-2023 Note Date & Type Note Facility 03-03-2023 Procedure note [facility] Discharge summary 03-03-2023 Note Date & Type Note Facility 03-03-2023 Discharge summary Note Date/Time March 03, 2023 11:05am [facility] Medical Records Department [address] [place] [address] Instructions for Home/Discharge Instructions 03/03/23 1102 MR#: [id number] Acct: [id number] Name: MONI ROBERTS Rep #:[id number] : 1965 57 From: [place] gutierrez MD PCP: Dr. Camille Cox MD Status:REG [facility] Discharge Instructions Diet Discharge Diet: No restrictions Activity Discharge Activity: Return to Normal Activity Dressing / Incision Call your doctor if your incision/area has: Sudden Increased Bleeding Additional Dressing/Incision Instructions:: saline to nose 5 times daily. mupirocin ointment to nostrils three times daily. sleep with head of bed elevated. Follow Up Care Please Follow Up With: Berlin Milian MD When: 1 week Test Results: Test results from this visit will be discussed in further detail at your follow-up appointment, if applicable. Discharge Plan Admission Attending Provider: Berlin Milian Primary Care Provider: Camille Cox Discharge Orders/Prescriptions Prescriptions: No Action lorazepam 0.5 mg tablet 0.5 mg PO DAILY PRN (Reason: anxiety) cetirizine 10 MG tablet 10 mg PO DAILY citalopram 10 mg tablet 10 mg PO DAILY Qty: 90 3RF omeprazole 40 mg capsule,delayed release(DR/EC) 40 mg PO DAILY Qty: 90 3RF simvastatin 40 mg tablet 40 mg PO QHS Qty: 90 3RF Referrals / Follow Up: Camille Cox MD [Primary Care Provider] - Disposition Disposition (needs filled in before D/C Order can be placed): Home, Self Care 03/03/23 1105<Electronically signed by Berlin Milian MD>Berlin Milian MD CC: Dr. Camille Cox MD ~ Signed [facility] Work Phone: Evaluation note Note Date & Type Note Facility Evaluation note Diagnosis Onset Date Acute URI acute [facility] Work Phone: Evaluation note Note Date & Type Note Facility Evaluation note Diagnosis Onset Date Deviated nasal septum acute Nasal congestion acute Nasal turbinate hypertrophy acute Polyp of nasal sinus acute Chronic pansinusitis chronic [facility] Work Phone: Evaluation note Note Date & Type Note Facility Evaluation note No assessment information availa ble [facility] Work Phone: Hospital Discharge instructions Note Date & Type Note Facility Hospital Discharge instructions Additional Instructions Implant Used?: Yes [facility] Work Phone: Hospital Discharge instructions Note Date & Type Note Facility Hospital Discharge instructions Ambulatory OrdersGeneral Surgery Location: None Selected [facility] [facility] Work Phone: Summary Purpose Family History Relationship Condition Age at Onset Recorded Date/T yvette sister Malignant neoplasm Unknown mother Diabetes mellitus Unknown Hypertension Unknown father Diabetes mellitus Unknown Advance Directives Advance Directive Response Recorded Date/ Time Living Will Yes August 13, 2022 8:34am Power of Clinical Genetics Laboratory Chief Yes August 13 8:34am Advance Directive Response Recorded Date/ Time Living Will Yes February 23 8:17am Power of Clinical Genetics Laboratory Chief Yes February 23, 2023 8:17am Name of Medical Power of Clinical Genetics Laboratory Chief ADAN ROBERTS February 23, 2023 8:17am Chief Complaint and Reason for Visit Chief Complaint Cough, Congestion, S inus pressure SCREENING LT BREAST ABN MAMM Reason for Visit Acute URI Chief Complaint 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 Hien Mena MD Family Provider Active Dr. Camille Cox MD Primary Care Provider Active Team Status: Inactive Member Role Status Dates Dr. Camille Cox MD Primary Care Provider, Attendi ng Provider Active Team Status: Inactive Member Role Status Dates Dr. Camille Cox MD Primary Care Pro vider, Attending Provider, Referring Provider Active Team Status: Inactive Member Role Status Dates Dr. Camille Cox MD Primary Care Provider Active Dr. [place] Milian MD Attending Provider, Refe rring Provider Active Team Status: Active Member Role/Relationship Status Dates Dr. Hien Mena MD Family Provider Active Dr. Camille Cox MD Primary Care Provider Active Team Status: Inactive Member Role/Relationship Status Dates Dr. aCmille Cox MD Primary Care Provider Active Start: November 28, 2024 End: November 28, 2024 Dr. Camille Cox MD Attending Provider Active Start: November 28, 2024 End: November 28, 2024 Goals (unrecognized section and content) Goals may be documented in a n alternate sectionGoals may be documented in an alternate section FOR RECORDS PERTAINING TO PATIENTS WHO ARE OR HAVE BEEN ENROLLED IN A CHEMICAL DEPENDENCY/SUBSTANCEABUSE PROGRAM, SOME INFORMATION MAY BE OMITTED. This clinical summary was aggregated from multiple sources. Caution should be exercised in using it in the provision of clinical care. This summary normalizes information from multiple sources, and as a consequence, information in this document may materially change the coding, format and clinical context of patient data. In addition, data may be omitted in some cases. CLINICAL DECISIONS SHOULD BE BASED ON THE PRIMARY CLINICAL RECORDS. [employer] provides no warranty or guarantee of the accuracy or completeness of information in this document.
== END | disposition home or self-care (01) ==
LOC: LAB 10:33
PROVIDERS: PCP Internal Medicine; Referring Provider Internal Medicine; Visit Provider Internal Medicine
DX: Z00.00 Encounter for general adult medical examination without abnormal findings (principal); Z13.220 Encounter for screening for lipoid disorders; E53.8 Deficiency of other specified B group vitamins; E55.9 Vitamin D deficiency, unspecified; E78.5 Hyperlipidemia, unspecified; E66.9 Obesity, unspecified; F41.9 Anxiety disorder, unspecified; R73.9 Hyperglycemia, unspecified
CPT/HCPCS: 36415; 80053; 80061; 82306; 82607; 83036; 84443; 85025

== ENCOUNTER → 2024-12-02 | Outpatient (CLI) | payer MEDICAID, SELFPAY ==
--- NOTE | 2024-12-02 14:30 | BI_ITS ---
EXAM: SCRN MAMM (CAD)W/MARI BILAT DATE: 12/02/2024 CLINICAL HISTORY: F, Age 59 y/o , BREAST CANCER SCREENING TECHNIQUE: SCRN MAMM (CAD)W/MARI BILAT COMPARISON: Prior exam(s) dated mammogram studies dated 09/21/2023, 09/16/2022 and 09/01/2022. FINDINGS: TISSUE DENSITY: The breasts are almost entirely fatty. Bilateral Breast Mammographic Findings: Stable nodular masslike densities are seen in both breasts. Benign-appearing round microcalcifications are seen in both breasts. No suspicious masses, suspicious cluster of microcalcifications, architectural distortion or secondary sign of malignancy is identified in either breast. BI/SCRN MAMM (CAD)W/MARI BILAT IMPRESSION: Benign screening mammogram. OVERALL FINAL ASSESSMENT BI-RADS 2: BENIGN RECOMMENDATION: Routine annual follow-up in 1 Year A letter with findings and recommendations will be mailed to the patient. Reading Location: [id number]
--- OUTSIDE RECORDS SUMMARY | 2024-12-02 19:48 | XMS RPT_ITS | CCD ---
Author Organization [facility] Inform ion Partnership [facility] Care Team Providers Care Dental Front Office Assistant Name Role Phone FLORESITA TORRES Admitting Unavailable FLORESITA TORRES Attending Unavailable FLORESITA TORRES Primary Care Unavailable HIEN MENA Consulting Unavailable PROVIDER, UNKNOWN Consulting Unavailable Dr. Camille Cox Primary Care Provider Dr. Camille Cox Attending Provider [phone] Dr. Camille Cox MD Primary Care Provider Dr. Camille Cox MD Attending Provider Camille Cox Primary Care Unavailable Camille Cox Attending Unavailable Camille Cox Primary Care Unavailable Camille Cox Attending Unavailable Camille Cox Referring Unavailable Camille Cox Attending Unavailable Camille Cox Referring Unavailable Camille Cox Primary Care Unavailable Allergies Allergy Classification Reported Allergen(s) Allergy Type Date of Onset Reaction(s) Facility (3 sources) Amoxicillin Drug Allergy 08-14-2022 [facility] (3 sources) Clavulanate Drug Allergy 08-14-2022 [facility] (1 source) Amoxicillin Drug Allergy 11-28-2024 [facility] (1 source) Clavulanate Drug Allergy 11-28-2024 [facility] Medications Current Medications Medication Drug Class(es) [...] tablet Active 10 mg PO DAILY 90 3 February 02, 2024 6:14pm Start: 05-12-2019 End: [...] Active 40 mg PO AT BEDTIME 90 February 02, 2024 6:14pm Completed/Discontinued Medications Medication [...] tablets,dose pack Discontinued 0 PO .COMPLEX 30 0 March 28, 2022 10:00am April 23, 2022 11:06am take TWO 150 mg tablets of nirmatrelvir with ONE 100 mg tablet of ritonavir twice daily for 5 days PO Start: 03-28-2022 End: 04-23-2022 Nirmatrelvir-Ritonavir (Paxl ovid (Eua)) 300 mg (150 mg x 2)-100 mg tablets,dose pack Discontinued 0 PO .COMPLEX March 28, 2022 9:00am April 23, 2022 [...] Days as needed for motion sickness 4 0 April 11, 2024 1:00am November 28, 2024 2:32pm Problems Problem Classification Problem Date Documented Date Episodic/Chronic Anxiety disorders (5 sources) Anxiety; Translations: [Anxiety disorder, unspecified] Onset: 11-28-2024 04-23-2021 Chronic Diabetes mellitus without complication (5 sources) Hyperglycemia; Translations: [Hyperglycemia, unspecified] Onset: 11-28-2024 04-23-2022 Episodic Disorders of lipid metabolism (5 sources) Hyperlipidemia; Translations: [Hyperlipidemia, unspecified] Onset: 11-28-2024 04-23-2021 Chronic Esophageal disorders (6 sources) Gastroesophageal reflux disease; Translations: [Gastro-esophageal reflux disease without esophagitis] 04-23-2021 Chronic Nutritional deficiencies (3 sources) Vitamin D deficiency; Translations: [Vitamin D deficiency, unspecified] 04-23-2022 Chronic Other and unspecified benign neoplasm (2 sources) Polyp of colon; Translations: [Polyp of colon] Episodic Other and unspecified benign neoplasm (1 source) Polyp of colon; Translations: [Polyp of colon] Onset: 11-28-2024 Episodic Other nutritional; endocrine; and metabolic disorders (3 sources) Body mass index 30+ - obesity; Translations: [Obesity, unspecified] 04-23-2021 Chronic Other nutritional; endocrine; and metabolic disorders (2 sources) Obesity, unspecified; Translations: [Obesity, unspecified] Onset: 11-28-2024 Chronic Other screening for suspected conditions (not mental disorders or infectious disease) (7 sources) Encounter for screening mammogram for malignant [...] Test Name Value Interpretation Reference Range Facility CBC W/Diff, Automatedon 08- Absolute Lymph 2.55 X10 3/uL Normal 0.83-4.51 [facility] Comment on above: Performed By: #### L 501.9520, L500.4050, L100.0100, L503.0106, L501.9985, L506.1001, L500.4100 #### [facility] [address] [place], [place], [id number] Absolute Neut 3.4 X10 3/uL Normal 2.0-7.7 [facility] Comment on above: Performed By: #### L 501.9520, L500.4050, L100.0100, L503.0106, L501.9985, L506.1001, L500.4100 #### [facility] [address] [place], [address] Basophils/100 WBC (Bld) 0.6 % Normal 0-1 [facility] Comment on above: Performed By: #### L 501.9520, L500.4050, L100.0100, L503.0106, L501.9985, L506.1001, L500.4100 #### [facility] [address] [place], [address] Eosinophils/100 WBC (Bld) 5.0 % Normal 0-5 [facility] Comment on above: Performed By: #### L 501.9520, L500.4050, L100.0100, L503.0106, L501.9985, L506.1001, L500.4100 #### [facility] [address] [place], [address] Erythrocyte distribution width (RBC) [Ratio] 13.2 % Normal 11.6-14.6 [facility] Comment on above: Performed By: #### L 501.9520, L500.4050, L100.0100, L503.0106, L501.9985, L506.1001, L500.4100 #### [facility] [address] [place], [address] Hematocrit (Bld) [Volume fraction] 41.5 % Normal 37-47 [facility] Comment on above: Performed By: #### L 501.9520, L500.4050, L100.0100, L503.0106, L501.9985, L506.1001, L500.4100 #### [facility] [address] [place], [address] Hemoglobin (Bld) [Mass/Vol] 13.8 g/dL Normal 12.0-15.0 [facility] Comment on above: Performed By: #### L 501.9520, L500.4050, L100.0100, L503.0106, L501.9985, L506.1001, L500.4100 #### [facility] [address] [place], [address] IG% 0.300 Normal 0.0-0.9 [facility] Comment on above: Result Comment: IG% - Immature Granulocytes (promyelocytes, myelocytes and metamyelocytes) > 1% indicates that a LEFT SHIFT is Present. Performed By: #### L 501.9520, L500.4050, L100.0100, L503.0106, L501.9985, L506.1001, L500.4100 #### [facility] [address] [facility] [place] [place], [address] Lymphocytes/100 WBC (Bld) 37.3 % Normal 19-41 [facility] Comment on above: Performed By: #### L 501.9520, L500.4050, L100.0100, L503.0106, L501.9985, L506.1001, L500.4100 #### [facility] [address] [place], [address] MCH (RBC) [Entitic mass] 29.9 pg Normal 27.0-32.0 [facility] Comment on above: Performed By: #### L 501.9520, L500.4050, L100.0100, L503.0106, L501.9985, L506.1001, L500.4100 #### [facility] [address] [place], [address] MCHC (RBC) [Mass/Vol] 33.3 g/dL Normal 32-36 [facility] Comment on above: Performed By: #### L 501.9520, L500.4050, L100.0100, L503.0106, L501.9985, L506.1001, L500.4100 #### [facility] [address] [place], [address] MCV (RBC) [Entitic vol] 90.0 fL Normal 81-99 [facility] Comment on above: Performed By: #### L 501.9520, L500.4050, L100.0100, L503.0106, L501.9985, L506.1001, L500.4100 #### [facility] [address] [place], [address] Monocytes/100 WBC (Bld) 7.6 % Normal 0-10 [facility] Comment on above: Performed By: #### L 501.9520, L500.4050, L100.0100, L503.0106, L501.9985, L506.1001, L500.4100 #### [facility] [address] [place], [address] Neutrophils/100 WBC (Bld) 49.2 % Normal 47-70 [facility] Comment on above: Performed By: #### L 501.9520, L500.4050, L100.0100, L503.0106, L501.9985, L506.1001, L500.4100 #### [facility] [address] [place], [address] Nucleated RBC (Bld) [#/Vol] 0 10*3/uL Normal 0-5 [facility] Comment on above: Performed By: #### L 501.9520, L500.4050, L100.0100, L503.0106, L501.9985, L506.1001, L500.4100 #### [facility] [address] [place], [address] Platelet mean volume (Bld) [Entitic vol] 9.7 fL Normal 6.2-12.0 [facility] Comment on above: Performed By: #### L 501.9520, L500.4050, L100.0100, L503.0106, L501.9985, L506.1001, L500.4100 #### [facility] [address] [place], [address] Platelets (Bld) [#/Vol] 278 10*3/uL Normal 150-450 [facility] Comment on above: Performed By: #### L 501.9520, L500.4050, L100.0100, L503.0106, L501.9985, L506.1001, L500.4100 #### [facility] [address] [place], [address] RBC (Bld) [#/Vol] 4.61 10*6/uL Normal 4.2-5.4 [facility] Comment on above: Performed By: #### L 501.9520, L500.4050, L100.0100, L503.0106, L501.9985, L506.1001, L500.4100 #### [facility] [address] [place], [address] RDW SD 43.0 fl Normal 35.1-43.9 [facility] Comment on above: Performed By: #### L 501.9520, L500.4050, L100.0100, L503.0106, L501.9985, L506.1001, L500.4100 #### [facility] [address] [place], [address] WBC (Bld) [#/Vol] 6.8 10*3/uL Normal 4.4-11.0 [facility] Comment on above: Performed By: #### L 501.9520, L500.4050, L100.0100, L503.0106, L501.9985, L506.1001, L500.4100 #### [facility] [address] [place], [address] Comprehensive Metabolic Prof idon 11-29-2024 Albumin [Mass/Vol] 4.2 g/dL Normal 3.5-5.0 [facility] Comment on above: Performed By: #### L 501.9520, L500.4050, L100.0100, L503.0106, L501.9985, L506.1001, L500.4100 #### [facility] [address] [place], [address] Albumin/Globulin [Mass ratio] 1.7 {ratio} Normal 0.9-2.4 [facility] Comment on above: Performed By: #### L 501.9520, L500.4050, L100.0100, L503.0106, L501.9985, L506.1001, L500.4100 #### [facility] [address] [place], [address] ALK PHOS 69 U/L Normal 35-104 [facility] Comment on above: Performed By: #### L 501.9520, L500.4050, L100.0100, L503.0106, L501.9985, L506.1001, L500.4100 #### [facility] [address] [place], [address] ALT [Catalytic activity/Vol] 19 U/L Normal <=34 [facility] Comment on above: Performed By: #### L 501.9520, L500.4050, L100.0100, L503.0106, L501.9985, L506.1001, L500.4100 #### [facility] [address] [place], [address] AST [Catalytic activity/Vol] 20 U/L Normal <=31 [facility] Comment on above: Performed By: #### L 501.9520, L500.4050, L100.0100, L503.0106, L501.9985, L506.1001, L500.4100 #### [facility] [address] [place], [address] Bilirubin [Mass/Vol] 0.51 mg/dL Normal 0.00-1.30 [facility] Comment on above: Performed By: #### L 501.9520, L500.4050, L100.0100, L503.0106, L501.9985, L506.1001, L500.4100 #### [facility] [address] [place], [address] BUN/CRE 18.7 RATIO Normal 10-20 [facility] Comment on above: Performed By: #### L 501.9520, L500.4050, L100.0100, L503.0106, L501.9985, L506.1001, L500.4100 #### [facility] [address] [place], [address] Calcium [Mass/Vol] 9.4 mg/dL Normal 7.6-11.0 [facility] Comment on above: Performed By: #### L 501.9520, L500.4050, L100.0100, L503.0106, L501.9985, L506.1001, L500.4100 #### [facility] [address] [place], [address] Chloride [Moles/Vol] 103 mmol/L Normal 98-108 [facility] Comment on above: Performed By: #### L 501.9520, L500.4050, L100.0100, L503.0106, L501.9985, L506.1001, L500.4100 #### [facility] [address] [place], [address] CO2 [Moles/Vol] 26.1 mmol/L Normal 21.0-32.0 [facility] Comment on above: Performed By: #### L 501.9520, L500.4050, L100.0100, L503.0106, L501.9985, L506.1001, L500.4100 #### [facility] [address] [place], [address] Creatinine [Mass/Vol] 0.74 mg/dL Normal 0.70-1.20 [facility] Comment on above: Performed By: #### L 501.9520, L500.4050, L100.0100, L503.0106, L501.9985, L506.1001, L500.4100 #### [facility] [address] [place], [address] GAP 10 Normal 5-15 [facility] Comment on above: Performed By: #### L 501.9520, L500.4050, L100.0100, L503.0106, L501.9985, L506.1001, L500.4100 #### [facility] [address] [place], [address] GFR/1.73 sq M.predicted among non-blacks MDRD (S/P/Bld) [Vol rate/Area] 93 mL/min/{1.73_m2} Normal >60 [facility] Comment on above: Result Comment: mL/m in/1.73m2 CKD-EPI Creatinine Equation (2020) Performed By: #### L 501.9520, L500.4050, L100.0100, L503.0106, L501.9985, L506.1001, L500.4100 #### [facility] [address] [place], [address] Globulin (S) [Mass/Vol] 2.5 g/dL Normal 2.2-4.2 [facility] Comment on above: Performed By: #### L 501.9520, L500.4050, L100.0100, L503.0106, L501.9985, L506.1001, L500.4100 #### [facility] [address] [place], [address] Glucose [Mass/Vol] 94 mg/dL Normal 70-99 [facility] Comment on above: Performed By: #### L 501.9520, L500.4050, L100.0100, L503.0106, L501.9985, L506.1001, L500.4100 #### [facility] [address] [place], [address] Potassium [Moles/Vol] 4.4 mmol/L Normal 3.3-5.1 [facility] Comment on above: Performed By: #### L 501.9520, L500.4050, L100.0100, L503.0106, L501.9985, L506.1001, L500.4100 #### [facility] [address] [place], [address] Sodium [Moles/Vol] 140 mmol/L Normal 133-145 [facility] Comment on above: Performed By: #### L 501.9520, L500.4050, L100.0100, L503.0106, L501.9985, L506.1001, L500.4100 #### [facility] [address] [place], [address] T PROT 6.8 g/dL Normal 5.9-8.4 [facility] Comment on above: Performed By: #### L 501.9520, L500.4050, L100.0100, L503.0106, L501.9985, L506.1001, L500.4100 #### [facility] [address] [place], [address] Urea nitrogen [Mass/Vol] 14 mg/dL Normal 4-19 [facility] Comment on above: Performed By: #### L 501.9520, L500.4050, L100.0100, L503.0106, L501.9985, L506.1001, L500.4100 #### [facility] [address] [place], [address] Hemoglobin A1con 11-29-2024 HbA1c (Bld) [Mass fraction] 5.1 % Normal <=5.6 [facility] Comment on above: Result Comment: Norm al < 5.7 % Prediabetic 5.7 - 6.4 % Diabetic >or= 6.5 % Please note range changes. Performed By: #### L 501.9520, L500.4050, L100.0100, L503.0106, L501.9985, L506.1001, L500.4100 #### [facility] [address] [place], [address] Lipid Profileon 11-29-2024 CHOL:HDL 2.20 Normal [facility] Comment on above: Performed By: #### L 501.9520, L500.4050, L100.0100, L503.0106, L501.9985, L506.1001, L500.4100 #### [facility] [address] [place], [address] Cholesterol [Mass/Vol] 192 mg/dL Normal <=200 [facility] Comment on above: Result Comment: Chol esterol level, Desirable <200 mg/dL Borderline high cholesterol 200-239 mg/dL High cholesterol >=240 mg/dL Recommendations of the NCEP Adult Treatment Panel for the following risk-cutoff thresholds for the [place] population. Performed By: #### L 501.9520, L500.4050, L100.0100, L503.0106, L501.9985, L506.1001, L500.4100 #### [facility] [address] [place], [address] Cholesterol in HDL [Mass/Vol] 87 mg/dL Normal [facility] Comment on above: Result Comment: Angela onal Cholesterol Education Program (NCEP) guidelines: <40 mg/dL: Low HDL-cholesterol (major risk factor for CHD) >= 60 mg/dL: High HDL-cholesterol (negative risk factor for CHD) HDL-cholesterol is affected by a number of factors, e.g. smoking, exercise, hormones, sex and age. Performed By: #### L 501.9520, L500.4050, L100.0100, L503.0106, L501.9985, L506.1001, L500.4100 #### [facility] [address] [place], [address] Cholesterol in LDL [Mass/Vol] 87 mg/dL Normal [facility] Comment on above: Result Comment: Bord hnokvz=282-883 mg/dL Higher Iuwb=766 mg/dL or greater Friedwald Equation for LDL-C Performed By: #### L 501.9520, L500.4050, L100.0100, L503.0106, L501.9985, L506.1001, L500.4100 #### [facility] [address] [place], [address] Cholesterol in VLDL [Mass/Vol] 18 mg/dL Normal 5-40 [facility] Comment on above: Performed By: #### L 501.9520, L500.4050, L100.0100, L503.0106, L501.9985, L506.1001, L500.4100 #### [facility] [address] [place], [address] Triglyceride [Mass/Vol] 90 mg/dL Normal [facility] Comment on above: Result Comment: The drugs N-Acetylcysteine and Metamizole may falsely depress this assay. Normal range: <150 mg/dL Borderline High: 150-199 mg/dL High: 200-499 mg/dL Very High: >500 mg/dL Performed By: #### L 501.9520, L500.4050, L100.0100, L503.0106, L501.9985, L506.1001, L500.4100 #### [facility] [address] [place], [address] Thyroid Stim Hormone (TSH)on 11-29-2024 TSH 1.960 uIU/mL Normal 0.300-4.200 [facility] Comment on above: Performed By: #### L 501.9520, L500.4050, L100.0100, L503.0106, L501.9985, L506.1001, L500.4100 #### [facility] [address] [place], [id number] Vitamin B12on 11-29-2024 Cobalamin (Vitamin B12) [Mass/Vol] 418 pg/mL Normal 180-914 [facility] Comment on above: Performed By: #### L 501.9520, L500.4050, L100.0100, L503.0106, L501.9985, L506.1001, L500.4100 #### [facility] [address] [place], [place], [id number] Vitamin D,25 Hydroxyon 11-29 Vitamin D 25-OH 59.8 ng/mL Normal 30-100 [facility] Comment on above: Result Comment: Kamini min D Status Deficiency: <20 ng/mL (50nmol/L) Insufficiency: 20-30 ng/mL (50-75 nmol/L) Sufficiency: 30-100 ng/mL (75-250 nmol/L) Toxicity: >100 ng/mL (>250 nmol/L) Performed By: #### L 501.9520, L500.4050, L100.0100, L503.0106, L501.9985, L506.1001, L500.4100 #### [facility] [address] [place], [address] /Jeanmarie 11-28-2024 /[facility]EL[facility] [address] [place] [address] OFFICE VISIT Date of Service: 11/28/24 MR#: [id number] Acct: [id number] Name: MONI ROBERTS Rep #: [id number] : 1965 Provider: Dr. 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 Required: No Accompanied by: Self Is patient in pain?: No Allergies amoxicillin (From Augmentin) Adverse Reaction (Unknown, Verified 11/28/24 14:29) Nausea clavulanic acid (From Augmentin) Adverse Reaction (Unknown, Verified 11/28/24 14:29) Nausea Medications ???Medication ???Instructions ???Recorded ???Confirmed ???Type cetirizine 10 mg tablet 10 mg PO DAILY 05/12/19 11/28/24 H istory lorazepam 0.5 mg tablet 0.5 mg PO DAILY PRN anxiety 11/28/24 History citalopram 10 mg tablet 10 mg PO DAILY #90 tabs 02/02/24 0 11/28/24 Rx omeprazole 40 mg capsule,delayed 40 mg PO DAILY #90 caps 02/02/24 0 11/28/24 Rx release simvastatin 40 mg tablet 40 mg PO QHS #90 tabs 02/02/2403/14 Rx GLP-1 (compounded semaglutide) 1 mg subcut 11/28/24 History cholecalciferol (vitamin D3) 10 10 mcg PO QDAY 11/28/24 11/28/24 H istory mcg (400 unit) capsule PFSH Medical History (Updated 11/28/24 @ 15:[address] Camille Cox MD) Colon polyp Wears glasses Wears contact lenses Post-menopausal Cancer High cholesterol Migraine headache History of hiatal hernia Gastric reflux Former smoker History of stress test Santizo esophagus Seasonal allergies GERD (gastroesophageal reflux disease) Hyperlipemia Anxiety Surgical History History of hernia repair History of hysterectomy History of colonoscopy History of endoscopy Family History Sister Cancer Mother Diabetes Hypertension Father Diabetes Social History Smoking Status: Former smoker Tobacco: How many years used: 18 how long ago did patient quit smokin04/20/2000 alcohol intake: current alcohol intake frequency: holidays/special occasions only substance use type: does not use what type of physical activity do you participate in: none HPI HPI Chief Complaint: no acute concerns Details: MONI ROBERTS, is a 59 F who presents to the office today for annual follow-up. 59-year-old female who has a history of hyperlipidemia on Zocor 40 mg p.o. nightly and citalopram. She states she has been on those medications long-term. Well predating my seeing her. She previously tried to wean off of citalopram but had to go back on it but she was on 20 mg daily and then resumed it back at 10 mg and has been on that for a number of years. She still now wonders if she needs to be on it. She states many of the life circumstances are much better. She has no particular stresses. She does wonders if it is making any difference at this point. We discussed potential ways to simply wean off of it and see how she does. I am in agreement. She will go to 10 mg every other day but rather than initially just going off of it, she would stay on 10 mg every other day for perhaps 1 to 2 months before making that determination. If she is doing fine then she would stop it. She would alert us if she does go ahead and try and come off of it. Also has some questions about long-term Zocor use. We reviewed basic information that is available out there and she would have to ultimately weigh out whether she wants to stay on it or not. She is doing it for primary prevention. She is also on vitamin D, Zyrtec, omeprazole. Finally, over the last 1 year approximately she has been on semaglutide at 1 mg weekly. 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 She has lost perhaps 20 pounds total since she has been doing this. Self- admittedly eats a fair amount of sweets but also does eat a fair amount of good foods like vegetables and fruits as well as meats. She generally speaking feels well and does not have any new concerns or complaints. She needs refills on her medications. She also would like to have her lab work updated at this point. She is due for colonoscopy after we reviewed the chart. Dr. Page did colonoscopy in 2019, polyp was identified and resected. Clip placed. He recommended 5-year follow-up which is now. Due for mammogram as well. (more content not included)... Normal [facility] Basophil percentageOrdered B y: [place] Milian on 02-24-2023 Chloride [Moles/Vol] 111 mmol/L 98-107 [facility] Glucose [Mass/Vol] 118 mg/dL 74-106 [facility] Comment on above: Fasting Glucose resu lt from 100 to 125 mg/dL suggests IMPAIRED HOMEOSTASIS per A.D.A. criteria. Potassium [Moles/Vol] 4.0 mmol/L 3.5-5.1 [facility] Sodium [Moles/Vol] 142 mmol/L 136-145 [facility] WBC (Bld) [#/Vol] 5.7 10*3/uL 4.4-11.0 [facility] Blood erythrocytes count (nu mber/volume)Ordered By: Berlin Milian on 02-24-2023 RBC (Bld) [#/Vol] 4.69 10*6/uL 4.2-5.4 [facility] Blood hemoglobin measurement (mass/volume)Ordered By: Berlin Milian on 02-24-2023 Hemoglobin (Bld) [Mass/Vol] 14.0 g/dL 12.0-15.0 [facility] Blood platelet mean volumeOr dered By: [place] Milian on 02-24-2023 Platelet mean volume (Bld) [Entitic vol] 9.6 fL 6.2-12.0 [facility] Determination of erythrocyte mean corpuscular volume (MCV)Ordered By: Berlin Milian on 02-24-2023 MCV (RBC) [Entitic vol] 90.6 fL 81-99 [facility] Hematocrit Auto (Bld) [Volum e fraction]Ordered By: Berlin Milian on 02-24-2023 Hematocrit (Bld) [Volume fraction] 42.5 % 37-47 [facility] - Chemistry and C hemistry - challengeOrdered By: [place] Milian on 02-24-2023 CO2 [Moles/Vol] 28.0 mmol/L 21.0-32.0 [facility] Urea nitrogen/Creatinine [Mass ratio] 13.9 mg/mg 10-20 [facility] - Hematology and Cell countsOrdered By: Brelin Milian on 02-24-2023 Erythrocyte distribution width (RBC) [Entitic vol] 45.3 fL 35.1-43.9 [facility] Erythrocyte distribution width (RBC) [Ratio] 13.9 % 11.6-14.6 [facility] MCH (RBC) [Entitic mass] 29.9 pg 27.0-32.0 [facility] MCHC Auto (RBC) [Mass/Vol]Or dered By: Berlin Milian on 02-24-2023 MCHC (RBC) [Mass/Vol] 32.9 g/dL 32-36 [facility] No Panel InformationOrdered By: Berlin Milian on 02-24-2023 Estimated GFR (MDRD) Amer 97 mL/min >60 [facility] Comment on above: GFR Calc Estimated GFR (MDRD) Non-Af Amer 80 mL/min >60 [facility] Comment on above: Non- GFR Calc Platelets bldOrdered By: Refugio Milian on 02-24-2023 Platelets (Bld) [#/Vol] 291 10*3/uL 150-450 [facility] Serum or plasma calcium nahomi urement (mass/volume)Ordered By: Berlin Milian on 02-24-2023 Calcium [Mass/Vol] 9.3 mg/dL 8.5-10.1 [facility] Serum or plasma creatinine m easurement (mass/volume)Ordered By: Berlin Milian on 02-24-2023 Creatinine [Mass/Vol] 0.79 mg/dL 0.55-1.02 [facility] Comment on above: The validity of the calculated GFR & GFRAA in patients over 70 years has not been determined. Clinical correlation is essential. Serum or plasma urea nitroge n measurement (mass/volume)Ordered By: Berlin Milian on 02-24-2023 Urea nitrogen [Mass/Vol] 11 mg/dL 7-18 [facility] Thin prep Papanicolaou smear with manual screeningOrdered By: Berlin Milian on 02-24-2023 Thin prep Papanicolaou smear with manual screening 3 5-15 [facility] Absolute lymphocyte countOrd ered By: Dr. Cox on 09-01-2022 Lymphocytes Auto (Unsp spec) [#/Vol] 2.31 10*3/uL 0.83-4.51 [facility] Basophil percentageOrdered B y: Dr. Cox on 09-01-2022 Basophils/100 WBC (Bld) 0.9 % 0-1 [facility] Bilirubin [Mass/Vol] 0.60 mg/dL 0.20-1.00 [facility] Comment on above: For patients on eltr ombopag therapy, use of Dimension [place] TBIL is not recommended. Chloride [Moles/Vol] 108 mmol/L 98-107 [facility] Cholesterol [Mass/Vol] 209 mg/dL <200 [facility] Comment on above: <200 mg/dL Desirable 200-240 mg/dL Borderline >240 mg/dL High Risk Eosinophils/100 WBC (Bld) 7.3 % 0-5 [facility] Glucose [Mass/Vol] 98 mg/dL 74-106 [facility] Neutrophils (Bld) [#/Vol] 3.0 10*3/uL 2.0-7.7 [facility] Neutrophils/100 WBC (Bld) 46.9 % 47-70 [facility] Potassium [Moles/Vol] 3.7 mmol/L 3.5-5.1 [facility] Protein [Mass/Vol] 7.2 g/dL 6.4-8.2 [facility] Sodium [Moles/Vol] 144 mmol/L 136-145 [facility] Triglyceride [Mass/Vol] 104 mg/dL <199 [facility] Comment on above: The drugs N-Acetylcy steine and Metamizole may falsely depress this assay.Serum Triglycerides Reference Interval Normal <150 mg/dL Borderline high 150 - 199 mg/dL High 200 - 499 mg/dL Very High > or = 500 mg/dL WBC (Bld) [#/Vol] 6.5 10*3/uL 4.4-11.0 [facility] Blood erythrocytes count (nu mber/volume)Ordered By: Dr. Cox on 09-01-2022 RBC (Bld) [#/Vol] 4.57 10*6/uL 4.2-5.4 [facility] Blood hemoglobin measurement (mass/volume)Ordered By: Dr. Cox on 09-01-2022 Hemoglobin (Bld) [Mass/Vol] 13.5 g/dL 12.0-15.0 [facility] Blood lymphocytes/100 leukoc ytesOrdered By: Dr. Cox on 09-01-2022 Lymphocytes/100 WBC (Bld) 35.8 % 19-41 [facility] Blood monocytes/100 leukocyt esOrdered By: Dr. Cox on 09-01-2022 Monocytes/100 WBC (Bld) 8.8 % 0-10 [facility] Blood platelet mean volumeOr dered By: Dr. Cox on 09-01-2022 Platelet mean volume (Bld) [Entitic vol] 9.6 fL 6.2-12.0 [facility] Determination of erythrocyte mean corpuscular volume (MCV)Ordered By: Dr. Cox on 09-01-2022 MCV (RBC) [Entitic vol] 89.7 fL 81-99 [facility] Hematocrit Auto (Bld) [Volum e fraction]Ordered By: Dr. Cox on 09-01-2022 Hematocrit (Bld) [Volume fraction] 41.0 % 37-47 [facility] - Chemistry and C hemistry - challengeOrdered By: Dr. Cox on 09-01-2022 ALP [Catalytic activity/Vol] 74 U/L 45-117 [facility] ALT [Catalytic activity/Vol] 36 U/L 13-56 [facility] CO2 [Moles/Vol] 29.0 mmol/L 21.0-32.0 [facility] Globulin (S) [Mass/Vol] 3.3 g/dL 2.2-4.2 [facility] Urea nitrogen/Creatinine [Mass ratio] 19.0 mg/mg 10-20 [facility] - Hematology and Cell countsOrdered By: Dr. Cox on 09-01-2022 Erythrocyte distribution width (RBC) [Entitic vol] 44.6 fL 35.1-43.9 [facility] Erythrocyte distribution width (RBC) [Ratio] 13.6 % 11.6-14.6 [facility] Immature granulocytes/100 WBC (Bld) 0.300 % 0.0-0.9 [facility] Comment on above: IG% - Immature Granu locytes (promyelocytes, myelocytes and metamyelocytes) > 1% indicates that a LEFT SHIFT is Present. MCH (RBC) [Entitic mass] 29.5 pg 27.0-32.0 [facility] Nucleated RBC/100 WBC (Bld) [Ratio] 0 % 0-5 [facility] MCHC Auto (RBC) [Mass/Vol]Or dered By: Dr. Cox on 09-01-2022 MCHC (RBC) [Mass/Vol] 32.9 g/dL 32-36 [facility] No Panel InformationOrdered By: Dr. Cox on 09-01-2022 Estimated GFR (MDRD) Amer 97 mL/min >60 [facility] Comment on above: GFR Calc Estimated GFR (MDRD) Non-Af Amer 80 mL/min >60 [facility] Comment on above: Non- GFR Calc Vitamin D 25-Hydroxy 34.8 ng/mL [facility] Comment on above: Vitamin D 25(OH) Sta tus Range Deficiency <20 ng/mL (50nmol/L) Insufficiency 20 - 30 ng/mL (50 - 75 nmol/L) Sufficiency 30 - 100 ng/mL (75 - 250 nmol/L) Toxicity >100 ng/mL (>250 nmol/L) Platelets bldOrdered By: Dr. Cox on 09-01-2022 Platelets (Bld) [#/Vol] 310 10*3/uL 150-450 [facility] Serum or plasma albumin nahomi urement (mass/volume)Ordered By: Dr. Cox on 09-01-2022 Albumin [Mass/Vol] 3.9 g/dL 3.2-5.0 [facility] Serum or plasma albumin/glob ulin mass ratioOrdered By: Dr. Cox on 09-01-2022 Albumin/Globulin [Mass ratio] 1.2 {ratio} 0.9-2.4 [facility] Serum or plasma calcium nahomi urement (mass/volume)Ordered By: Dr. Cox on 09-01-2022 Calcium [Mass/Vol] 9.2 mg/dL 8.5-10.1 [facility] Serum or plasma cholesterol in HDL measurement (mass/volume)Ordered By: Dr. Cox on 09-01-2022 Cholesterol in HDL [Mass/Vol] 101 mg/dL >40 [facility] Comment on above: The drugs N-Acetylcy steine and Metamizole may falsely depress this assay. Reference Range HDL <40 mg/dL Low HDL Cholesterol HDL >or= 60 mg/dL High HDL Cholesterol Serum or plasma cholesterol in VLDL measurement (mass/volume)Ordered By: Dr. Cox on 09-01-2022 Cholesterol in VLDL [Mass/Vol] 21 mg/dL 5-40 [facility] Serum or plasma creatinine m easurement (mass/volume)Ordered By: Dr. Cox on 09-01-2022 Creatinine [Mass/Vol] 0.79 mg/dL 0.55-1.02 [facility] Comment on above: The validity of the calculated GFR & GFRAA in patients over 70 years has not been determined. Clinical correlation is essential. Serum or plasma low density lipoprotein (LDL) cholesterol measurement (mass/volume)Ordered By: Dr. Cox on 09-01-2022 Cholesterol in LDL [Mass/Vol] 87 mg/dL 0-130 [facility] Serum or plasma urea nitroge n measurement (mass/volume)Ordered By: Dr. Cox on 09-01-2022 Urea nitrogen [Mass/Vol] 15 mg/dL 7-18 [facility] Thin prep Papanicolaou smear with manual screeningOrdered By: Dr. Cox on 09-01-2022 Thin prep Papanicolaou smear with manual screening 24 U/L 15-37 [facility] Thin prep Papanicolaou smear with manual screening 7 5-15 [facility] Whole blood hemoglobin A1c/t otal hemoglobin ratio (mass fraction)Ordered By: Dr. Cox on 09-01-2022 HbA1c (Bld) [Mass fraction] 5.1 % 3.8-5.6 [facility] Comment on above: Normal < 5.7 % Predi abetic 5.7 - 6.4 % Diabetic >or= 6.5 % Please note range changes. MAMM DIGITAL BILAT SCREENon 12-15-2018 MAMM DIGITAL BILAT SCREEN [place] [address] Patient: MONI ROBERTS Phone#: : 1965 Age: 53 Gender: F Pt. Type: Out Account: [id number] Location: [facility] Ordering: FLORESITA TORRES Exam Date: 12/15/2018/8:29 Family Phys: HIEN MENA Charge Code: [id number] Physician: [place] Order #: [id number] DLP Dose#: PROCEDURE: MAMM BILAT DIGITAL SCREENING WITH CAD COMPARISON: [facility], BILAT SCREENING, 04/30/2012, 10:54. [facility], BILAT SCREENING, 08/02/2013, 8:03. [facility], BILAT SCREENING, 08/10/2015, 7:59. [facility], BILAT SCREENING, 10/22/2017, 8:39. INDICATIONS: Screening [...] Lopez MD on 12/15/2018 at 9:47 Normal [facility] Vital Signs Date Time Vital Sign Value Performing Clinician Sudarshan banks 11-28-2024 14:35-0400 Body height 160.[address] Camille Cox MD Work Phone: [facility] 11-28-2024 14:35-0400 Body mass index (BMI) [Ratio] 33.3 kg/m2 Dr. Camille Cox MD Work Phone: [facility] 11-28-2024 14:35-0400 Body temperature 98.4 [degF] Dr. Camille Cox MD Work Phone: [facility] 11-28-2024 14:35-0400 Body weight 85.[address] Camille Cox MD Work Phone: [facility] 11-28-2024 14:35-0400 Diastolic blood pressure 81 mm[Hg] Dr. Camille Cox MD Work Phone: [facility] 11-28-2024 14:35-0400 Heart rate 74 /min Dr. Camille Cox MD Work Phone: [facility] 11-28-2024 14:35-0400 Respiratory rate 16 /min Dr. Camille Cox MD Work Phone: [facility] 11-28-2024 14:35-0400 SaO2% (BldA) [Mass fraction] 96 % Dr. Camille Cox MD Work Phone: [facility] 11-28-2024 14:35-0400 Systolic blood pressure 127 mm[Hg] Dr. Camille Cox MD Work Phone: [facility] 03-03-2023 15:40-0500 Body temperature 97.2 [degF] [facility] 03-03-2023 15:40-0500 Diastolic blood pressure 73 mm[Hg] [facility] 03-03-2023 15:40-0500 Heart rate 72 /min [facility] 03-03-2023 15:40-0500 Respiratory rate 16 /min [facility] 03-03-2023 15:40-0500 SaO2% (BldA) [Mass fraction] 94 % [facility] 03-03-2023 15:40-0500 Systolic blood pressure 138 mm[Hg] [facility] 03-03-2023 14:00-0500 Inhaled oxygen flow rate 1 L/min [facility] 03-03-2023 09:41-0500 Body height 160.02 cm [facility] 03-03-2023 09:41-0500 Body mass index (BMI) [Ratio] 35.7 kg/m2 [facility] 03-03-2023 09:41-0500 Body weight 91.6 kg [facility] 08-14-2022 14:25-0400 Body height 160.[address] Camille Cox Work Phone: [facility] 08-14-2022 14:25-0400 Body mass index (BMI) [Ratio] 37.6 kg/m2 Dr. Camille Cox Work Phone: [facility] 08-14-2022 14:25-0400 Body temperature 97.6 [degF] Dr. Camille Cox Work Phone: [facility] 08-14-2022 14:25-0400 Body weight 96.[address] Camille Cox Work Phone: [facility] 08-14-2022 14:25-0400 Diastolic blood pressure 77 mm[Hg] Dr. Camille Cox Work Phone: [facility] 08-14-2022 14:25-0400 Heart rate 77 /min Dr. Camille Cox Work Phone: [facility] 08-14-2022 14:25-0400 Respiratory rate 18 /min Dr. Camille Cox Work Phone: [facility] 08-14-2022 14:25-0400 SaO2% (BldA) [Mass fraction] 94 % Dr. Camille Cox Work Phone: [facility] 08-14-2022 14:25-0400 Systolic blood pressure 125 mm[Hg] Dr. Camille Cox Work Phone: [facility] Encounters Encounter Date Encounter Type Care Provider Facility [facility]: [facility] Start: 11-29-2024 Encounter for genera l adult medical examination without abnormal findings [facility] Start: [facility] Start: 11-28-2024 Encounter for genera l adult medical examination without abnormal findings [facility] Start: 11-28-2024 End: 11-28-[address] Camille Cox MD -[facility] Work Phone: Start: 11-28-2024 End: 11-28-[address] Camille Cox MD Work Phone: -[facility] Start: 03-03-2023 End: 03-03-2023 Admission to same day surgery center [facility] Start: 03-03-2023 End: 03-03-2023 ambulatory [facility] Work Phone: Start: 09-16-2022 End: 09-16-[address] Camille Cox Work Phone: [facility] Work Phone: Start: 09-16-2022 End: 09-16-[address] Camille Cox Work Phone: [facility] Start: 09-01-2022 End: 09-01-[address] Camille Cox Work Phone: [facility] Start: 08-14-2022 End: 08-14-[address] Camille Cox Work Phone: [facility] Start: 04-23-[address] Breezy Cox Work Phone: [facility] Start: 12-15-2018 End: 12-15-2018 Patient encounter procedure FLORESITA TORRES [facility] Procedures Date Procedure Procedure Detail Performing Clinician Start: 03-03-2023 Functional Endoscopoic Sinus Surgery (Bilateral) Start: 09-16-[address] Camille Lopez hner Work Phone: Start: 09-01-[address] Camille Cox Work Phone: H/O: hysterectomy History of hysterectomy Dr. Camille Cox Work Phone: Plan of Treatment Date Care Activity Detail Author Start: 03-03-2023 Patient discharge [facility] CBC W Auto Different ial panel - Blood [facility] Comprehensive metabo lic 1999 panel - Serum or Plasma [facility] Hemoglobin A1c/Hemog lobin.total in Blood [facility] Lipid 1996 panel - S tori or Plasma [facility] MG Breast - bilateral Screening [facility] Patient referral [facility] Work Phone: Thyroid stimulating hormone measurement [facility] Vitamin B12 measurement [facility] Vitamin D, 25-hydrox y measurement [facility] Payers Date Payer Category Payer Unknown [id number] 2024 Self-pay [id number] 2024 Unknown [id number] 2010 Unknown [id number] 1965 Unknown [id number] Unknown [id number] Unknown [id number] Unknown [id number] Social History Date Type Detail Facility Start: 08-14-2022 End: 02-23-2023 Tobacco smoking status CTIS Unknown if ever smoked [facility] Start: 05-12-2019 Non-smoker [facility] Start: 1965 Sex Assigned At Female [facility] Start: 04-09-2023 Tobacco smoking stat us NHIS Ex-smoker (finding) [facility] Medical Equipment Procedure Code Equipment Code Equipment Origin al Text Equipment Identifier Dates FESS (functional endoscopic sinus surgery) Plant polysaccharide haemostatic agent, bioabsorbable ([id number] FDA Start: 03-03-2023 Goals Date Patient Goal Desired Activity /State Mental Status Date Assessment Result Facility 03-03-2023 Cognitive function Level Of Cons ciousness Follows Commands;Drowsy [facility] Work Phone: 03-03-2023 Cognitive function Voice/Name [facility] Work Phone: Procedure note 03-03-2023 Note Date & Type Note Facility 03-03-2023 Procedure note [facility] Discharge summary 03-03-2023 Note Date & Type Note Facility 03-03-2023 Discharge summary Note Date/Time March 03, 2023 11:05am [facility] Medical Records Department [address] [place] [address] Instructions for Home/Discharge Instructions 03/03/23 1102 MR#: [id number] Acct: [id number] Name: MONI ROBERTS Rep #:[id number] : 1965 57 From: [place] gutierrez MD PCP: Dr. Camille Cox MD Status:REG [facility] Discharge Instructions Diet Discharge Diet: No restrictions [...] CC: Dr. Camille Cox MD ~ Signed [facility] Work Phone: Evaluation note Note Date & Type Note Facility Evaluation note Diagnosis Onset Date Acute URI acute [facility] Work Phone: Evaluation note Note Date & Type Note Facility Evaluation note Diagnosis Onset Date Deviated nasal septum acute Nasal congestion acute Nasal turbinate hypertrophy acute Polyp of nasal sinus acute Chronic pansinusitis chronic [facility] Work Phone: Evaluation note Note Date & Type Note Facility Evaluation note No assessment information availa [facility] Work Phone: Hospital Discharge instructions Note Date & Type Note Facility Hospital Discharge instructions Additional Instructions Implant Used?: Yes [facility] Work Phone: Hospital Discharge instructions Note Date & Type Note Facility Hospital Discharge instructions Ambulatory OrdersGeneral Surgery Location: None [facility] Work Phone: Summary Purpose Family History No Family History Records Found Relationship Condition Age at Onset Recorded Date/T yvette sister Malignant neoplasm Unknown mother Diabetes mellitus Unknown Hypertension Unknown father Diabetes mellitus Unknown Advance Directives No Advanced Directives Records Found Advance Directive Response Recorded Date/ Time Living Will Yes August 13, 2022 8:34am Power of Senior Bi Developer Yes August 13 8:34am Advance Directive Response Recorded Date/ Time Living Will Yes February 23 8:17am Power of Senior Bi Developer Yes February 23, 2023 8:17am Name of Medical Power of Senior Bi Developer ADAN ROBERTS February 23, 2023 8:17am Chief [...] section and content) DATE CREATED AUTHOR 12/22/2018 [facility] DATE CREATED AUTHOR AUTHOR'S ORGANIZ ATION 12/02/2024 [facility] Care Teams (unrecognized sec tion and content) Team Status: Active Member Role Status Dates Dr. Hien Mena MD Family Provider Active Dr. Camille Cox MD Primary Care Provider Active Team Status: Inactive Member Role Status Dates Dr. Camille Cox MD Primary Care Provider, Attendi Provider Active Team Status: Inactive Member Role Status Dates Dr. Camille Cox MD Primary Care Pro vider, Attending Provider, Referring Provider Active Team Status: Inactive Member Role Status Dates Dr. Camille Cox MD Primary Care Provider Active Dr. [place] Milian MD Attending Provider, Refe ing Provider Active Team Status: Active Member Role/Relationship Status Dates Dr. Hien Mena MD Family Provider Active Dr. Camille Cox MD Primary Care Provider Active Team Status: Inactive Member Role/Relationship Status Dates Dr. Camille Cox MD Primary Care Provider Active Start: [...] BE BASED ON THE PRIMARY CLINICAL RECORDS. Pets are family too [facility]. provides no warranty or guarantee of the accuracy or completeness of information in this document.
== END | disposition home or self-care (01) ==
LOC: OPBI 14:10
PROVIDERS: PCP Internal Medicine; Referring Provider Internal Medicine; Visit Provider Internal Medicine
DX: Z12.31 Encounter for screening mammogram for malignant neoplasm of breast (principal)
CPT/HCPCS: 77063; 77067